=== PATIENT | female | born 1955 | race Caucasian/White ===

== ENCOUNTER 2017-04-25 01:00 | Emergency (ER) | payer MEDICARE, OTHER ==
[2017-04-25] MEDS ORDERED: HYDROCODONE/APAP (10/325) TAB PO (01:30)
[2017-04-25] MEDS: ONDANSETRON 4 MG INJ IV (01:47)
[2017-04-25] MEDS: morphine 4 MG/ML VIAL IV (01:47)
[2017-04-25 02:19] LABS: ADD MAN DIFF? NO
[2017-04-25 02:22] LABS: BASOPHILS % 0.2 % (0.0-2.0); EOSINOPHILS % 0.2 % (0.0-7.0); HEMOGLOBIN 10.7 g/dl (12.0-16.0); LYMPHOCYTES # 1.2 10^3/ul (0.8-2.9); LYMPHOCYTES % 6.1 % (15.0-51.0); MEAN CORPUSCULAR HEMOGLOBIN 30.7 pg (29.0-33.0); MEAN CORPUSCULAR HGB CONC 33.4 g/dl (32.0-37.0); MEAN CORPUSCULAR VOLUME 91.7 fl (82.0-101.0); MEAN PLATELET VOLUME 12.4 fl (7.4-10.4); MONOCYTE # 0.9 10^3/ul (0.3-0.9); MONOCYTES % 4.6 % (0.0-11.0); NEUTROPHIL # 17.2 10^3/ul (1.6-7.5); NEUTROPHILS % 87.8 % (39.0-77.0); PLATELET COUNT 339 10^3/UL (140-415); RED BLOOD COUNT 3.49 10^6/ul (4.20-5.40)
[2017-04-25 02:22] LABS: WHITE BLOOD COUNT 19.6 10^3/ul (4.8-10.8)
[2017-04-25] MEDS: HYDROmorphONE 1 MG/ML SYG IV (02:26)
[2017-04-25 02:38] LABS: INR 0.95; PARTIAL THROMBOPLASTIN TIME 34.3 Sec (25.0-35.0); PROTIME 12.8 Sec (11.9-14.9)
[2017-04-25 02:45] LABS: ALANINE AMINOTRANSFERASE 41 IU/L (13-69); ALBUMIN 3.5 g/dl (3.3-4.9); ALBUMIN/GLOBULIN RATIO 1.09; ALKALINE PHOSPHATASE 1096 IU/L (42-121); ANION GAP 22 (8-16); ASPARTATE AMINO TRANSFERASE 102 IU/L (15-46); BILIRUBIN,INDIRECT 0.3 mg/dl (0-1.1); BILIRUBIN,TOTAL 0.7 mg/dl (0.2-1.3); BLOOD UREA NITROGEN 37 mg/dl (7-20); CALCIUM 8.8 mg/dl (8.4-10.2); CARBON DIOXIDE 31 mmol/L (21-31); CHLORIDE 85 mmol/L (97-110); CREATININE 3.76 mg/dl (0.44-1.00); GLUCOSE 186 mg/dl (70-220); LIPASE 16 U/L (23-300); POTASSIUM 4.3 mmol/L (3.5-5.1); SODIUM 134 mmol/L (135-144); TOTAL PROTEIN 6.7 g/dl (6.1-8.1)
== END 2017-04-25 03:11 | disposition home or self-care (01) ==
LOC: E/R 01:00
DX: M53.3 Sacrococcygeal disorders, not elsewhere classified (principal); I10 Essential (primary) hypertension; R07.9 Chest pain, unspecified; Z96.643 Presence of artificial hip joint, bilateral
CPT/HCPCS: 36415; 72131; 73510; 80053; 83690; 85025; 85610; 85730; 96374; 96375; 99285-25

== ENCOUNTER 2017-06-21 00:38 | Inpatient (IN) | payer MEDICARE, OTHER ==
[2017-06-21] MEDS: NITROGLYCERIN 2% 1 GM OINT PKT TD (01:06)
[2017-06-21] MEDS: morphine 4 MG/ML VIAL IV ×2 (01:07→11:49)
[2017-06-21 01:25] LABS: ADD MAN DIFF? NO
[2017-06-21 01:27] LABS: WHITE BLOOD COUNT 8.6 10^3/ul (4.8-10.8)
[2017-06-21 01:27] LABS: BASOPHILS % 0.4 % (0.0-2.0); EOSINOPHILS # 0.2 10^3/ul (0.0-0.5); HEMOGLOBIN 9.4 g/dl (12.0-16.0); LYMPHOCYTES # 1.3 10^3/ul (0.8-2.9); LYMPHOCYTES % 14.9 % (15.0-51.0); MEAN CORPUSCULAR HEMOGLOBIN 31.4 pg (29.0-33.0); MEAN CORPUSCULAR HGB CONC 33.6 g/dl (32.0-37.0); MEAN CORPUSCULAR VOLUME 93.6 fl (82.0-101.0); MEAN PLATELET VOLUME 12.1 fl (7.4-10.4); MONOCYTE # 0.8 10^3/ul (0.3-0.9); MONOCYTES % 9.3 % (0.0-11.0); NEUTROPHIL # 6.3 10^3/ul (1.6-7.5); NEUTROPHILS % 72.9 % (39.0-77.0); PLATELET COUNT 148 10^3/UL (140-415); RED BLOOD COUNT 2.99 10^6/ul (4.20-5.40); RED CELL DISTRIBUTION WIDTH 17.2 % (11.5-14.5)
[2017-06-21 01:43] LABS: ALANINE AMINOTRANSFERASE 28 IU/L (13-69); ALBUMIN 3.6 g/dl (3.3-4.9); ALBUMIN/GLOBULIN RATIO 1.24; ALKALINE PHOSPHATASE 680 IU/L (42-121); ANION GAP 23 (8-16); ASPARTATE AMINO TRANSFERASE 45 IU/L (15-46); BLOOD UREA NITROGEN 54 mg/dl (7-20); CALCIUM 8.3 mg/dl (8.4-10.2); CARBON DIOXIDE 28 mmol/L (21-31); CHLORIDE 92 mmol/L (97-110); CREATININE 4.94 mg/dl (0.44-1.00); GLUCOSE 92 mg/dl (70-220); SODIUM 137 mmol/L (135-144); TOTAL PROTEIN 6.5 g/dl (6.1-8.1)
[2017-06-21 01:46] LABS: POTASSIUM 6.1 mmol/L (3.5-5.1)
[2017-06-21 01:48] LABS: INR 1.05; PROTIME 13.8 Sec (11.9-14.9); PT RATIO 1.1
[2017-06-21 01:57] LABS: TROPONIN-I < 0.012 ng/ml (0.00-0.12)
[2017-06-21] MEDS: hydrALAzine 20 MG INJ IV ×3 (02:06→19:54)
[2017-06-21] MEDS: NA POLYST SULFON 15 GM/60 ML BTL PO (02:07)
[2017-06-21 02:30] LABS: B-TYPE NATRIURETIC PEPTIDE > 175000 PG/ML (0-125)
[2017-06-21] MEDS: morphine 2 MG INJ IV (07:28)
[2017-06-21] MEDS: ONDANSETRON 4 MG INJ IV ×3 (07:28→20:07)
[2017-06-21 12:18] LABS: HEPATITIS B SURFACE ANTIGEN NEGATIVE (NEGATIVE)
[2017-06-21] MEDS ORDERED: DOCUSATE SODIUM 100 MG CAP PO (12:30)
[2017-06-21] MEDS ORDERED: BISACODYL 10 MG SUPP PR (12:30)
[2017-06-21] MEDS ORDERED: GLUCAGON 1 MG INJ IM (12:30)
[2017-06-21] MEDS ORDERED: GLUCOSE GEL 15 GRAM TUBE BUCCAL (12:30)
[2017-06-21] MEDS ORDERED: NACL 0.9% 3 ML SYG IV (12:30)
[2017-06-21] MEDS ORDERED: MAGNESIUM HYDROXIDE 30ML CUP PO (12:30)
[2017-06-21 12:36] LABS: HEPATITIS B SURFACE ANTIBODY POSITIVE (NEGATIVE)
[2017-06-21] MEDS: LEVOFLOXACIN 500MG/D5W (PMX) 100 ML IVPB (16:08)
[2017-06-21] MEDS: AMLODIPINE 5 MG TAB PO ×2 (16:08→19:54)
[2017-06-21 17:09] LABS: ANION GAP 20 (8-16); BLOOD UREA NITROGEN 24 mg/dl (7-20); CALCIUM 8.8 mg/dl (8.4-10.2); CARBON DIOXIDE 29 mmol/L (21-31); CHLORIDE 94 mmol/L (97-110); CREATININE 3.24 mg/dl (0.44-1.00); GLUCOSE 162 mg/dl (70-220); SODIUM 139 mmol/L (135-144)
[2017-06-21] MEDS: SEVELAMER CARBONATE 0.8 GM PKT PO (17:28)
[2017-06-21] MEDS: traMADol 50 MG TAB PO ×2 (17:28→23:01)
[2017-06-21] MEDS: INSULIN ASPART [NOVOLOG] 3 ML PEN SC ×2 (18:01→20:06)
[2017-06-21] MEDS: LISINOPRIL 10 MG TAB PO (19:54)
[2017-06-21] MEDS: INSULIN GLARGINE [LANtus] 3 ML PEN SC (20:06)
[2017-06-21] MEDS ORDERED: LISINOPRIL 10 MG TAB PO (21:00)
[2017-06-21] MEDS: SUMATRIPTAN 6 MG/0.5 ML INJ SC (22:11)
[2017-06-22] MEDS: ACCU-CHEK XX (02:41)
[2017-06-22] MEDS: GLUCOSE GEL 15 GRAM TUBE PO (02:41)
[2017-06-22 07:48] LABS: ADD MAN DIFF? NO
[2017-06-22 07:53] LABS: BASOPHILS % 0.4 % (0.0-2.0); EOSINOPHILS % 0.1 % (0.0-7.0); HEMATOCRIT 33.8 % (37.0-47.0); HEMOGLOBIN 10.6 g/dl (12.0-16.0); LYMPHOCYTES # 0.9 10^3/ul (0.8-2.9); LYMPHOCYTES % 11.1 % (15.0-51.0); MEAN CORPUSCULAR HEMOGLOBIN 30.4 pg (29.0-33.0); MEAN CORPUSCULAR HGB CONC 31.4 g/dl (32.0-37.0); MEAN CORPUSCULAR VOLUME 96.8 fl (82.0-101.0); MEAN PLATELET VOLUME 12.4 fl (7.4-10.4); MONOCYTE # 0.5 10^3/ul (0.3-0.9); MONOCYTES % 6.3 % (0.0-11.0); NEUTROPHIL # 6.2 10^3/ul (1.6-7.5); NEUTROPHILS % 81.4 % (39.0-77.0); PLATELET COUNT 152 10^3/UL (140-415); RED BLOOD COUNT 3.49 10^6/ul (4.20-5.40); RED CELL DISTRIBUTION WIDTH 17.1 % (11.5-14.5)
[2017-06-22 07:53] LABS: WHITE BLOOD COUNT 7.7 10^3/ul (4.8-10.8)
[2017-06-22] MEDS: INSULIN ASPART [NOVOLOG] 3 ML PEN SC ×4 (07:55→21:00)
[2017-06-22] MEDS ORDERED: ZOLPIDEM 5 MG TAB PO (08:00)
[2017-06-22 08:05] LABS: HEMOGLOBIN A1C 6.7 % (0-5.9)
[2017-06-22] MEDS: SEVELAMER CARBONATE 0.8 GM PKT PO ×3 (08:09→17:54)
[2017-06-22] MEDS: ASPIRIN 81 MG TAB PO (08:09)
[2017-06-22] MEDS: FOLIC ACID 1 MG TAB PO (08:10)
[2017-06-22] MEDS: PAROXETINE 20 MG TAB PO (08:10)
[2017-06-22] MEDS: MULTIVIT/CA CARB/B CMPLX/FA TAB PO (08:10)
[2017-06-22] MEDS: PANTOPRAZOLE (EC) 40 MG TAB PO (08:10)
[2017-06-22] MEDS: AMLODIPINE 5 MG TAB PO ×2 (08:10→21:00)
[2017-06-22] MEDS: LISINOPRIL 10 MG TAB PO ×2 (08:10→21:00)
[2017-06-22] MEDS: INFLUENZA VIRUS VACCINE 0.5 ML (DISPENSING) IM* (08:11)
[2017-06-22 08:14] LABS: ALANINE AMINOTRANSFERASE 16 IU/L (13-69); ALBUMIN 3.7 g/dl (3.3-4.9); ALBUMIN/GLOBULIN RATIO 1.15; ALKALINE PHOSPHATASE 640 IU/L (42-121); ANION GAP 18 (8-16); ASPARTATE AMINO TRANSFERASE 43 IU/L (15-46); BLOOD UREA NITROGEN 28 mg/dl (7-20); CALCIUM 8.8 mg/dl (8.4-10.2); CARBON DIOXIDE 31 mmol/L (21-31); CHLORIDE 94 mmol/L (97-110); CHOL/HDL RATIO 2.5 RATIO; CHOLESTEROL 143 mg/dl (100-200); CREATININE 3.76 mg/dl (0.44-1.00); GLUCOSE 79 mg/dl (70-220); HDL CHOLESTEROL 56 mg/dl (35-98); LDL CHOLESTEROL,CALCULATED 69 mg/dl; MAGNESIUM 2.2 mg/dl (1.7-2.5); PHOSPHORUS 6.8 mg/dl (2.5-4.9); SODIUM 139 mmol/L (135-144); TOTAL PROTEIN 6.9 g/dl (6.1-8.1); TRIGLYCERIDES 90 mg/dl (0-149)
[2017-06-22 08:28] LABS: FREE THYROXINE INDEX (Calc) 2.79 ug/ml (0.65-3.89); T3 UPTAKE 33.2 % (23.5-40.5); T4 (THYROXINE) 8.4 ug/dl (5.5-11.0)
[2017-06-22] MEDS ORDERED: ONDANSETRON 4 MG INJ IV (10:00)
[2017-06-22] MEDS: ONDANSETRON 4 MG INJ IV (10:02)
[2017-06-22] MEDS: LORAZEPAM 2 MG INJ IV (14:43)
[2017-06-22] MEDS: INSULIN GLARGINE [LANtus] 3 ML PEN SC (21:00)
[2017-06-23] MEDS: ACCU-CHEK XX (01:51)
[2017-06-23] MEDS: ALBUTEROL/IPRATROPIUM (NEB) 3 ML AMP HHN (03:24)
[2017-06-23] MEDS ORDERED: LORAZEPAM 2 MG INJ IV (07:30)
[2017-06-23] MEDS: SEVELAMER CARBONATE 0.8 GM PKT PO ×3 (07:55→17:26)
[2017-06-23] MEDS: INSULIN ASPART [NOVOLOG] 3 ML PEN SC ×5 (07:55→22:59)
[2017-06-23] MEDS: LORAZEPAM 2 MG INJ IV (08:00)
[2017-06-23] MEDS: hydrALAzine 20 MG INJ IV ×2 (09:01→17:26)
[2017-06-23] MEDS: PANTOPRAZOLE (EC) 40 MG TAB PO (12:01)
[2017-06-23] MEDS: ASPIRIN 81 MG TAB PO (12:01)
[2017-06-23] MEDS: PAROXETINE 20 MG TAB PO (12:01)
[2017-06-23] MEDS: MULTIVIT/CA CARB/B CMPLX/FA TAB PO (12:01)
[2017-06-23] MEDS: FOLIC ACID 1 MG TAB PO (12:02)
[2017-06-23] MEDS: LISINOPRIL 10 MG TAB PO ×2 (12:02→21:34)
[2017-06-23] MEDS: AMLODIPINE 5 MG TAB PO ×2 (12:02→21:33)
[2017-06-23] MEDS: LEVOFLOXACIN 250MG/D5W (PMX) 50 ML IVPB (16:00)
[2017-06-23] MEDS: ATENOLOL 50 MG TAB PO (21:30)
[2017-06-23] MEDS: INSULIN GLARGINE [LANtus] 3 ML PEN SC ×2 (21:42→23:17)
[2017-06-24] MEDS: ACCU-CHEK XX ×7 (02:00→23:55)
[2017-06-24] MEDS: GLUCOSE GEL 15 GRAM TUBE PO ×4 (02:06→17:04)
[2017-06-24] MEDS: DEXTROSE 50% 50 ML SYRINGE IV ×4 (02:28→07:22)
[2017-06-24] MEDS: hydrALAzine 20 MG INJ IV (06:37)
[2017-06-24 07:34] LABS: ADD MAN DIFF? NO
[2017-06-24 07:37] LABS: BASOPHILS % 0.1 % (0.0-2.0); EOSINOPHILS % 0.5 % (0.0-7.0); HEMATOCRIT 30.2 % (37.0-47.0); HEMOGLOBIN 9.7 g/dl (12.0-16.0); LYMPHOCYTES # 1.4 10^3/ul (0.8-2.9); LYMPHOCYTES % 17.3 % (15.0-51.0); MEAN CORPUSCULAR HEMOGLOBIN 31.2 pg (29.0-33.0); MEAN CORPUSCULAR HGB CONC 32.1 g/dl (32.0-37.0); MEAN CORPUSCULAR VOLUME 97.1 fl (82.0-101.0); MEAN PLATELET VOLUME 11.6 fl (7.4-10.4); MONOCYTE # 0.6 10^3/ul (0.3-0.9); MONOCYTES % 7.4 % (0.0-11.0); NEUTROPHIL # 5.9 10^3/ul (1.6-7.5); NEUTROPHILS % 74.3 % (39.0-77.0); PLATELET COUNT 142 10^3/UL (140-415); RED BLOOD COUNT 3.11 10^6/ul (4.20-5.40)
[2017-06-24 07:37] LABS: WHITE BLOOD COUNT 7.9 10^3/ul (4.8-10.8)
[2017-06-24] MEDS: INSULIN ASPART [NOVOLOG] 3 ML PEN SC ×5 (07:55→21:00)
[2017-06-24 08:15] LABS: ANION GAP 19 (8-16); BLOOD UREA NITROGEN 21 mg/dl (7-20); CALCIUM 8.2 mg/dl (8.4-10.2); CARBON DIOXIDE 29 mmol/L (21-31); CHLORIDE 97 mmol/L (97-110); CREATININE 3.59 mg/dl (0.44-1.00); GLUCOSE 62 mg/dl (70-220); POTASSIUM 4.2 mmol/L (3.5-5.1); SODIUM 141 mmol/L (135-144)
[2017-06-24] MEDS: LIDOCAINE 1% (MPF) 5 ML VIAL SC (08:30)
[2017-06-24] MEDS ORDERED: ATENOLOL 100 MG TAB PO (09:00)
[2017-06-24] MEDS: SEVELAMER CARBONATE 0.8 GM PKT PO ×3 (09:06→17:35)
[2017-06-24] MEDS: MULTIVIT/CA CARB/B CMPLX/FA TAB PO (09:06)
[2017-06-24] MEDS: PAROXETINE 20 MG TAB PO (09:07)
[2017-06-24] MEDS: ASPIRIN 81 MG TAB PO (09:07)
[2017-06-24] MEDS: ATENOLOL 50 MG TAB PO ×2 (09:07→21:00)
[2017-06-24] MEDS: FOLIC ACID 1 MG TAB PO (09:08)
[2017-06-24] MEDS: AMLODIPINE 5 MG TAB PO ×2 (09:08→21:00)
[2017-06-24] MEDS: LISINOPRIL 10 MG TAB PO ×2 (09:08→22:00)
[2017-06-24] MEDS: PANTOPRAZOLE (EC) 40 MG TAB PO (09:08)
[2017-06-24] MEDS: DEXTROSE 5% 1,000 ML IV (12:30)
[2017-06-24] MEDS: ALBUTEROL/IPRATROPIUM (NEB) 3 ML AMP HHN ×2 (14:39→20:37)
[2017-06-24] MEDS: DEXTROSE 10% 1,000 ML IV (17:45)
[2017-06-24] MEDS: ONDANSETRON 4 MG INJ IV (20:53)
[2017-06-25] MEDS: ACCU-CHEK XX ×12 (01:19→19:58)
[2017-06-25 05:20] LABS: ADD MAN DIFF? NO
[2017-06-25 06:06] LABS: ANION GAP 20 (8-16); BLOOD UREA NITROGEN 30 mg/dl (7-20); CALCIUM 7.8 mg/dl (8.4-10.2); CARBON DIOXIDE 27 mmol/L (21-31); CHLORIDE 95 mmol/L (97-110); CREATININE 4.48 mg/dl (0.44-1.00); GLUCOSE 186 mg/dl (70-220); POTASSIUM 5.1 mmol/L (3.5-5.1); SODIUM 137 mmol/L (135-144)
[2017-06-25 06:28] LABS: BASOPHILS % 0.3 % (0.0-2.0); EOSINOPHILS # 0.1 10^3/ul (0.0-0.5); EOSINOPHILS % 1.3 % (0.0-7.0); HEMATOCRIT 29.8 % (37.0-47.0); HEMOGLOBIN 9.6 g/dl (12.0-16.0); LYMPHOCYTES # 1.4 10^3/ul (0.8-2.9); LYMPHOCYTES % 23.6 % (15.0-51.0); MEAN CORPUSCULAR HEMOGLOBIN 30.8 pg (29.0-33.0); MEAN CORPUSCULAR HGB CONC 32.2 g/dl (32.0-37.0); MEAN CORPUSCULAR VOLUME 95.5 fl (82.0-101.0); MEAN PLATELET VOLUME 12.7 fl (7.4-10.4); MONOCYTE # 0.5 10^3/ul (0.3-0.9); MONOCYTES % 8.2 % (0.0-11.0); NEUTROPHILS % 65.9 % (39.0-77.0); RED BLOOD COUNT 3.12 10^6/ul (4.20-5.40); RED CELL DISTRIBUTION WIDTH 17.2 % (11.5-14.5)
[2017-06-25 07:17] LABS: POSITIVE DIFF @See below
[2017-06-25] MEDS: SEVELAMER CARBONATE 0.8 GM PKT PO ×3 (07:35→17:49)
[2017-06-25] MEDS: INSULIN ASPART [NOVOLOG] 3 ML PEN SC ×7 (08:34→21:23)
[2017-06-25 09:12] LABS: ANISOCYTOSIS 2+ (0-0); BAND NEUTROPHILS #M 0.1 10^3/ul (0.0-0.6); BAND NEUTROPHILS % (M) 2 % (0-4); EOSINOPHILS % (M) 1 % (0-7); GIANT THROMBO% (M) 12 % (0-0); LYMPHOCYTES #M 1.5 10^3/ul (0.8-2.9); LYMPHOCYTES % (M) 25 % (15-51); MONOCYTES % (M) 1 % (0-11); PLATELET ESTIMATE DECREASED; REACTIVE LYMPHOCYTES #M 0.7 10^3/ul (0.0-0.0); REACTIVE LYMPHOCYTES% (M) 12 % (0-0); SEG NEUT #M 3.5 10^3/ul (1.6-7.5); SEGMENTED NEUTROPHILS (M) % 59 % (39-77); SMUDGE%M 22 % (0-0)
[2017-06-25] MEDS: ALBUTEROL/IPRATROPIUM (NEB) 3 ML AMP HHN ×3 (09:21→20:00)
[2017-06-25] MEDS ORDERED: ACCU-CHEK XX (12:00)
[2017-06-25] MEDS: PANTOPRAZOLE (EC) 40 MG TAB PO (13:40)
[2017-06-25] MEDS: MULTIVIT/CA CARB/B CMPLX/FA TAB PO (13:40)
[2017-06-25] MEDS: ASPIRIN 81 MG TAB PO (13:40)
[2017-06-25] MEDS: ATENOLOL 50 MG TAB PO ×2 (13:41→21:28)
[2017-06-25] MEDS: LISINOPRIL 10 MG TAB PO ×2 (13:41→21:28)
[2017-06-25] MEDS: AMLODIPINE 5 MG TAB PO ×2 (13:43→21:28)
[2017-06-25] MEDS: FOLIC ACID 1 MG TAB PO (13:43)
[2017-06-25] MEDS: PAROXETINE 20 MG TAB PO (13:47)
[2017-06-25 13:56] LABS: PLATELET COUNT 119 10^3/UL (140-415)
[2017-06-25] MEDS: ONDANSETRON 4 MG INJ IV ×2 (14:35→22:30)
[2017-06-25] MEDS: LEVOFLOXACIN 250MG/D5W (PMX) 50 ML IVPB (16:20)
[2017-06-25] MEDS: LIDOCAINE 2% JELLY 5 ML TOP (16:30)
[2017-06-25] MEDS: morphine 2 MG INJ IV (16:30)
[2017-06-25] MEDS: DEXTROSE 10% 1,000 ML IV (17:30)
[2017-06-25] MEDS: INSULIN GLARGINE [LANtus] 3 ML PEN SC (21:00)
[2017-06-26] MEDS: ACCU-CHEK XX ×3 (00:07→04:49)
[2017-06-26 04:48] LABS: ADD MAN DIFF? NO
[2017-06-26 04:50] LABS: WHITE BLOOD COUNT 6.1 10^3/ul (4.8-10.8)
[2017-06-26 04:50] LABS: BASOPHILS % 0.3 % (0.0-2.0); EOSINOPHILS # 0.2 10^3/ul (0.0-0.5); EOSINOPHILS % 2.6 % (0.0-7.0); HEMATOCRIT 30.5 % (37.0-47.0); HEMOGLOBIN 9.9 g/dl (12.0-16.0); LYMPHOCYTES # 1.1 10^3/ul (0.8-2.9); LYMPHOCYTES % 18.6 % (15.0-51.0); MEAN CORPUSCULAR HEMOGLOBIN 31.2 pg (29.0-33.0); MEAN CORPUSCULAR HGB CONC 32.5 g/dl (32.0-37.0); MEAN CORPUSCULAR VOLUME 96.2 fl (82.0-101.0); MEAN PLATELET VOLUME 12.2 fl (7.4-10.4); MONOCYTE # 0.5 10^3/ul (0.3-0.9); MONOCYTES % 8.4 % (0.0-11.0); NEUTROPHIL # 4.2 10^3/ul (1.6-7.5); NEUTROPHILS % 69.8 % (39.0-77.0); PLATELET COUNT 132 10^3/UL (140-415); RED BLOOD COUNT 3.17 10^6/ul (4.20-5.40); RED CELL DISTRIBUTION WIDTH 16.5 % (11.5-14.5)
[2017-06-26 05:12] LABS: ANION GAP 18 (8-16); BLOOD UREA NITROGEN 30 mg/dl (7-20); CALCIUM 8.2 mg/dl (8.4-10.2); CARBON DIOXIDE 29 mmol/L (21-31); CHLORIDE 95 mmol/L (97-110); GLUCOSE 157 mg/dl (70-220); POTASSIUM 4.7 mmol/L (3.5-5.1); SODIUM 137 mmol/L (135-144)
[2017-06-26] MEDS: INSULIN ASPART [NOVOLOG] 3 ML PEN SC ×6 (07:35→21:20)
[2017-06-26] MEDS: ONDANSETRON 4 MG INJ IV ×2 (07:36→12:46)
[2017-06-26] MEDS: ALBUTEROL/IPRATROPIUM (NEB) 3 ML AMP HHN ×4 (07:37→20:00)
[2017-06-26] MEDS: SEVELAMER CARBONATE 0.8 GM PKT PO ×3 (08:30→17:20)
[2017-06-26] MEDS: MULTIVIT/CA CARB/B CMPLX/FA TAB PO (08:31)
[2017-06-26] MEDS: AMLODIPINE 5 MG TAB PO ×2 (08:31→21:23)
[2017-06-26] MEDS: FOLIC ACID 1 MG TAB PO (08:31)
[2017-06-26] MEDS: LISINOPRIL 10 MG TAB PO ×2 (08:31→21:24)
[2017-06-26] MEDS: PAROXETINE 20 MG TAB PO (08:32)
[2017-06-26] MEDS: ASPIRIN 81 MG TAB PO (08:32)
[2017-06-26] MEDS: PANTOPRAZOLE (EC) 40 MG TAB PO (08:32)
[2017-06-26] MEDS: ATENOLOL 50 MG TAB PO ×2 (08:32→21:00)
[2017-06-26] MEDS: morphine 2 MG INJ IV ×2 (10:54→16:08)
[2017-06-26] MEDS: INSULIN GLARGINE [LANtus] 3 ML PEN SC (21:21)
[2017-06-27] MEDS: ACCU-CHEK XX (02:00)
[2017-06-27] MEDS: INSULIN ASPART [NOVOLOG] 3 ML PEN SC ×6 (07:55→21:00)
[2017-06-27 07:56] LABS: ADD MAN DIFF? NO
[2017-06-27 08:00] LABS: WHITE BLOOD COUNT 6.9 10^3/ul (4.8-10.8)
[2017-06-27 08:00] LABS: BASOPHILS % 0.4 % (0.0-2.0); EOSINOPHILS # 0.2 10^3/ul (0.0-0.5); EOSINOPHILS % 3.5 % (0.0-7.0); HEMATOCRIT 30.3 % (37.0-47.0); HEMOGLOBIN 9.9 g/dl (12.0-16.0); LYMPHOCYTES # 1.4 10^3/ul (0.8-2.9); LYMPHOCYTES % 19.7 % (15.0-51.0); MEAN CORPUSCULAR HEMOGLOBIN 30.6 pg (29.0-33.0); MEAN CORPUSCULAR HGB CONC 32.7 g/dl (32.0-37.0); MEAN CORPUSCULAR VOLUME 93.5 fl (82.0-101.0); MEAN PLATELET VOLUME 12.1 fl (7.4-10.4); MONOCYTE # 0.5 10^3/ul (0.3-0.9); MONOCYTES % 7.3 % (0.0-11.0); NEUTROPHIL # 4.7 10^3/ul (1.6-7.5); NEUTROPHILS % 68.7 % (39.0-77.0); PLATELET COUNT 135 10^3/UL (140-415); RED BLOOD COUNT 3.24 10^6/ul (4.20-5.40); RED CELL DISTRIBUTION WIDTH 16.2 % (11.5-14.5)
[2017-06-27] MEDS: ALBUTEROL/IPRATROPIUM (NEB) 3 ML AMP HHN ×3 (08:00→15:36)
[2017-06-27 08:01] LABS: POSITIVE DIFF @See below
[2017-06-27 08:19] LABS: ANION GAP 20 (8-16); BLOOD UREA NITROGEN 47 mg/dl (7-20); CALCIUM 8.3 mg/dl (8.4-10.2); CARBON DIOXIDE 26 mmol/L (21-31); CHLORIDE 95 mmol/L (97-110); CREATININE 5.04 mg/dl (0.44-1.00); GLUCOSE 56 mg/dl (70-220); POTASSIUM 5.3 mmol/L (3.5-5.1); SODIUM 136 mmol/L (135-144)
[2017-06-27] MEDS: SEVELAMER CARBONATE 0.8 GM PKT PO ×3 (08:22→17:55)
[2017-06-27] MEDS: AMLODIPINE 5 MG TAB PO ×2 (08:27→22:18)
[2017-06-27] MEDS: PAROXETINE 20 MG TAB PO (08:27)
[2017-06-27] MEDS: LISINOPRIL 10 MG TAB PO ×2 (08:27→22:18)
[2017-06-27] MEDS: ASPIRIN 81 MG TAB PO (08:27)
[2017-06-27] MEDS: MULTIVIT/CA CARB/B CMPLX/FA TAB PO (08:27)
[2017-06-27] MEDS: ATENOLOL 50 MG TAB PO ×2 (08:28→22:18)
[2017-06-27] MEDS: FOLIC ACID 1 MG TAB PO (08:28)
[2017-06-27] MEDS: PANTOPRAZOLE (EC) 40 MG TAB PO (08:28)
[2017-06-27] MEDS: DEXTROSE 5%-0.9% NACL 1,000 ML IV (13:30)
[2017-06-27] MEDS: LEVOFLOXACIN 500 MG TAB PO (18:09)
[2017-06-27] MEDS: morphine LIQ (10 MG/5 ML) CUP PO (22:39)
[2017-06-28] MEDS: ACCU-CHEK XX (02:00)
[2017-06-28 05:21] LABS: ADD MAN DIFF? NO
[2017-06-28 05:27] LABS: WHITE BLOOD COUNT 6.1 10^3/ul (4.8-10.8)
[2017-06-28 05:27] LABS: BASOPHILS % 0.3 % (0.0-2.0); EOSINOPHILS # 0.1 10^3/ul (0.0-0.5); EOSINOPHILS % 2.3 % (0.0-7.0); HEMATOCRIT 30.2 % (37.0-47.0); HEMOGLOBIN 9.9 g/dl (12.0-16.0); LYMPHOCYTES # 1.4 10^3/ul (0.8-2.9); LYMPHOCYTES % 22.2 % (15.0-51.0); MEAN CORPUSCULAR HEMOGLOBIN 30.7 pg (29.0-33.0); MEAN CORPUSCULAR HGB CONC 32.8 g/dl (32.0-37.0); MEAN CORPUSCULAR VOLUME 93.8 fl (82.0-101.0); MEAN PLATELET VOLUME 11.9 fl (7.4-10.4); MONOCYTE # 0.6 10^3/ul (0.3-0.9); MONOCYTES % 9.3 % (0.0-11.0); NEUTROPHILS % 65.4 % (39.0-77.0); PLATELET COUNT 118 10^3/UL (140-415); RED BLOOD COUNT 3.22 10^6/ul (4.20-5.40); RED CELL DISTRIBUTION WIDTH 15.9 % (11.5-14.5)
[2017-06-28 05:46] LABS: ANION GAP 22 (8-16); BLOOD UREA NITROGEN 56 mg/dl (7-20); CALCIUM 8.2 mg/dl (8.4-10.2); CARBON DIOXIDE 25 mmol/L (21-31); CHLORIDE 93 mmol/L (97-110); CREATININE 5.62 mg/dl (0.44-1.00); GLUCOSE 217 mg/dl (70-220); SODIUM 133 mmol/L (135-144)
[2017-06-28 05:52] LABS: POTASSIUM 6.5 mmol/L (3.5-5.1)
[2017-06-28] MEDS: NA POLYST SULFON 15 GM/60 ML BTL PO (06:36)
[2017-06-28] MEDS: ALBUTEROL/IPRATROPIUM (NEB) 3 ML AMP HHN ×3 (08:00→19:52)
[2017-06-28] MEDS: LISINOPRIL 10 MG TAB PO ×3 (09:00→21:24)
[2017-06-28] MEDS: AMLODIPINE 5 MG TAB PO ×3 (09:00→21:24)
[2017-06-28] MEDS: ATENOLOL 50 MG TAB PO ×3 (09:00→21:24)
[2017-06-28] MEDS: FOLIC ACID 1 MG TAB PO (09:13)
[2017-06-28] MEDS: MULTIVIT/CA CARB/B CMPLX/FA TAB PO (09:13)
[2017-06-28] MEDS: ASPIRIN 81 MG TAB PO (09:13)
[2017-06-28] MEDS: PANTOPRAZOLE (EC) 40 MG TAB PO (09:14)
[2017-06-28] MEDS: PAROXETINE 20 MG TAB PO (09:14)
[2017-06-28] MEDS: SEVELAMER CARBONATE 0.8 GM PKT PO ×3 (09:14→17:55)
[2017-06-28] MEDS: INSULIN ASPART [NOVOLOG] 3 ML PEN SC ×7 (09:16→22:26)
[2017-06-28] MEDS ORDERED: LIDOCAINE 1% (MDV) 20 ML INJ (16:19)
[2017-06-28] MEDS ORDERED: IODIXANOL LOCM 50 ML BTL (16:44)
[2017-06-28] MEDS: ENALAPRILAT 1.25 MG INJ IV (19:03)
[2017-06-29] MEDS: ACCU-CHEK XX (01:55)
[2017-06-29] MEDS: ALBUTEROL/IPRATROPIUM (NEB) 3 ML AMP HHN ×3 (08:00→20:00)
[2017-06-29] MEDS: SEVELAMER CARBONATE 0.8 GM PKT PO ×4 (08:35→18:05)
[2017-06-29] MEDS: PAROXETINE 20 MG TAB PO (08:36)
[2017-06-29] MEDS: AMLODIPINE 5 MG TAB PO ×2 (08:36→20:45)
[2017-06-29] MEDS: ASPIRIN 81 MG TAB PO (08:36)
[2017-06-29] MEDS: MULTIVIT/CA CARB/B CMPLX/FA TAB PO (08:36)
[2017-06-29] MEDS: PANTOPRAZOLE (EC) 40 MG TAB PO (08:36)
[2017-06-29] MEDS: ATENOLOL 50 MG TAB PO ×2 (08:36→20:45)
[2017-06-29] MEDS: FOLIC ACID 1 MG TAB PO (08:37)
[2017-06-29] MEDS: LISINOPRIL 10 MG TAB PO ×2 (08:37→20:45)
[2017-06-29] MEDS: INSULIN ASPART [NOVOLOG] 3 ML PEN SC ×7 (08:41→20:46)
[2017-06-29] MEDS: morphine LIQ (10 MG/5 ML) CUP PO (21:48)
[2017-06-29] MEDS: morphine 2 MG INJ IV (22:38)
[2017-06-30] MEDS: ACCU-CHEK XX (02:00)
[2017-06-30] MEDS: ALBUTEROL/IPRATROPIUM (NEB) 3 ML AMP HHN ×3 (08:00→19:33)
[2017-06-30] MEDS: ATENOLOL 50 MG TAB PO ×2 (09:00→20:16)
[2017-06-30] MEDS: LISINOPRIL 10 MG TAB PO ×2 (09:00→20:17)
[2017-06-30] MEDS: AMLODIPINE 5 MG TAB PO ×2 (09:00→20:16)
[2017-06-30] MEDS: INSULIN ASPART [NOVOLOG] 3 ML PEN SC ×7 (09:00→21:00)
[2017-06-30] MEDS: PANTOPRAZOLE (EC) 40 MG TAB PO (09:12)
[2017-06-30] MEDS: ASPIRIN 81 MG TAB PO (09:13)
[2017-06-30] MEDS: SEVELAMER CARBONATE 0.8 GM PKT PO ×3 (09:13→18:43)
[2017-06-30] MEDS: FOLIC ACID 1 MG TAB PO (09:13)
[2017-06-30] MEDS: MULTIVIT/CA CARB/B CMPLX/FA TAB PO (09:13)
[2017-06-30] MEDS: PAROXETINE 20 MG TAB PO (09:14)
[2017-06-30] MEDS: ONDANSETRON 4 MG INJ IV (21:57)
[2017-06-30] MEDS: morphine LIQ (10 MG/5 ML) CUP PO (22:04)
== END 2017-06-30 22:15 | DRG 252 ==
LOC: ICU 06-24 09:25 → MS1 06-27 13:27 → E/R 00:38 → TEL 06-26 20:51 → MS1 06-27 13:36 → TEL 05:41
PROC: 05753ZZ Dilation of Right Subclavian Vein, Percutaneous Approach (ICD-10-PCS; principal; 2017-06-28 16:00)
PROC: 027V3ZZ Dilation of Superior Vena Cava, Percutaneous Approach (ICD-10-PCS; 2017-06-28 16:00)
PROC: B518YZZ Fluoroscopy of Superior Vena Cava using Other Contrast (ICD-10-PCS; 2017-06-28 16:00)
PROC: B51WYZZ Fluoroscopy of Dialysis Shunt/Fistula using Other Contrast (ICD-10-PCS; 2017-06-28 16:00)
PROC: 5A1D70Z Performance of Urinary Filtration, Intermittent, Less than 6 Hours Per Day (ICD-10-PCS; 2017-06-28 16:30)
PROC: 5A1D70Z Performance of Urinary Filtration, Intermittent, Less than 6 Hours Per Day (ICD-10-PCS; 2017-06-28 16:30)
PROC: 5A1D70Z Performance of Urinary Filtration, Intermittent, Less than 6 Hours Per Day (ICD-10-PCS; 2017-06-28 16:30)
PROC: 5A1D70Z Performance of Urinary Filtration, Intermittent, Less than 6 Hours Per Day (ICD-10-PCS; 2017-06-28 16:30)
DX: I13.2 Hypertensive heart and chronic kidney disease with heart failure and with stage 5 chronic kidney disease, or end stage renal disease (principal); J18.9 Pneumonia, unspecified organism; N18.6 End stage renal disease; I50.33 Acute on chronic diastolic (congestive) heart failure; J96.01 Acute respiratory failure with hypoxia; T82.41XA Breakdown (mechanical) of vascular dialysis catheter, initial encounter; G45.8 Other transient cerebral ischemic attacks and related syndromes; I87.1 Compression of vein; G72.81 Critical illness myopathy; E87.5 Hyperkalemia; E11.22 Type 2 diabetes mellitus with diabetic chronic kidney disease; Z91.15 Patient's noncompliance with renal dialysis; I95.9 Hypotension, unspecified; N63.10 Unspecified lump in the right breast, unspecified quadrant; I16.0 Hypertensive urgency; E78.00 Pure hypercholesterolemia, unspecified; R10.13 Epigastric pain; R76.0 Raised antibody titer; F17.210 Nicotine dependence, cigarettes, uncomplicated; Z87.81 Personal history of (healed) traumatic fracture; M25.552 Pain in left hip; E83.51 Hypocalcemia; E11.649 Type 2 diabetes mellitus with hypoglycemia without coma; E87.70 Fluid overload, unspecified; D63.8 Anemia in other chronic diseases classified elsewhere; Z79.4 Long term (current) use of insulin
CPT/HCPCS: 36415; 36901; 71045; 73721; 74176; 75827; 76642; 76937; 80048; 80053; 80061; 82962; 83036; 83735; 83880; 84100; 84436; 84443; 84479; 84484; 85025; 85610; 85730; 86706; 87070; 87081; 87340; 90935; 93005; 93306; 93971; 94640; 94664; 96374; 96375; 96376; 97162; 97530; 99285-25

== ENCOUNTER 2017-06-30 11:30 | Inpatient (IN) | payer MEDICARE, OTHER ==
[2017-07-01] MEDS ORDERED: HYDROCODONE/APAP (5/325) TAB PO (00:30)
[2017-07-01] MEDS ORDERED: LACTULOSE 30ML CUP PO (01:30)
[2017-07-01] MEDS ORDERED: DEXTROSE 50% 50 ML SYRINGE IV ×2 (01:30)
[2017-07-01] MEDS ORDERED: GLUCOSE GEL 15 GRAM TUBE PO ×2 (01:30)
[2017-07-01] MEDS ORDERED: GLUCAGON 1 MG INJ IM (01:30)
[2017-07-01] MEDS ORDERED: MAGNESIUM HYDROXIDE 30ML CUP PO (01:30)
[2017-07-01] MEDS ORDERED: GLUCOSE GEL 15 GRAM TUBE BUCCAL (01:30)
[2017-07-01] MEDS ORDERED: ACETAMINOPHEN 325 MG TAB PO (01:30)
[2017-07-01] MEDS ORDERED: DOCUSATE SODIUM 100 MG CAP PO (02:00)
[2017-07-01] MEDS ORDERED: ALBUTEROL/IPRATROPIUM (NEB) 3 ML AMP HHN (02:00)
[2017-07-01] MEDS: ACCUCHECK AT 2AM (Patients on SS coverage) XX (02:00)
[2017-07-01] MEDS ORDERED: BISACODYL 10 MG SUPP PR (02:00)
[2017-07-01] MEDS: traMADol 50 MG TAB PO ×2 (03:46→13:36)
[2017-07-01] MEDS: PANTOPRAZOLE (EC) 40 MG TAB PO (06:20)
[2017-07-01 06:46] LABS: ADD MAN DIFF? NO
[2017-07-01 06:48] LABS: WHITE BLOOD COUNT 5.9 10^3/ul (4.8-10.8)
[2017-07-01 06:48] LABS: BASOPHILS % 0.5 % (0.0-2.0); EOSINOPHILS # 0.3 10^3/ul (0.0-0.5); EOSINOPHILS % 4.2 % (0.0-7.0); HEMATOCRIT 29.3 % (37.0-47.0); HEMOGLOBIN 9.9 g/dl (12.0-16.0); LYMPHOCYTES # 1.2 10^3/ul (0.8-2.9); LYMPHOCYTES % 19.4 % (15.0-51.0); MEAN CORPUSCULAR HEMOGLOBIN 31.2 pg (29.0-33.0); MEAN CORPUSCULAR HGB CONC 33.8 g/dl (32.0-37.0); MEAN CORPUSCULAR VOLUME 92.4 fl (82.0-101.0); MEAN PLATELET VOLUME 12.4 fl (7.4-10.4); MONOCYTE # 0.6 10^3/ul (0.3-0.9); MONOCYTES % 10.8 % (0.0-11.0); NEUTROPHIL # 3.8 10^3/ul (1.6-7.5); NEUTROPHILS % 64.8 % (39.0-77.0); PLATELET COUNT 160 10^3/UL (140-415); RED BLOOD COUNT 3.17 10^6/ul (4.20-5.40); RED CELL DISTRIBUTION WIDTH 15.5 % (11.5-14.5)
[2017-07-01] MEDS: Insulin NOVOLOG SS MILD Algorithm (SS with meals and bedtime) SC ×4 (07:35→21:26)
[2017-07-01] MEDS: INSULIN ASPART [NOVOLOG] 3 ML PEN SC ×3 (07:48→17:43)
[2017-07-01] MEDS: SEVELAMER CARBONATE 0.8 GM PKT PO ×3 (07:49→17:35)
[2017-07-01] MEDS: FOLIC ACID 1 MG TAB PO (08:31)
[2017-07-01] MEDS: CLONIDINE 0.3 MG/24 HR PATCH TRANSDERM (08:31)
[2017-07-01] MEDS: MULTIVIT/CA CARB/B CMPLX/FA TAB PO (08:31)
[2017-07-01] MEDS: PAROXETINE 20 MG TAB PO (08:31)
[2017-07-01] MEDS: ASPIRIN 81 MG TAB PO (08:32)
[2017-07-01] MEDS: AMLODIPINE 5 MG TAB PO ×2 (08:32→21:20)
[2017-07-01] MEDS: LISINOPRIL 10 MG TAB PO ×2 (08:32→21:21)
[2017-07-01] MEDS: ATENOLOL 50 MG TAB PO ×2 (08:33→21:21)
[2017-07-01 09:51] LABS: ALANINE AMINOTRANSFERASE 28 IU/L (13-69); ALBUMIN 3.5 g/dl (3.3-4.9); ALBUMIN/GLOBULIN RATIO 1.09; ALKALINE PHOSPHATASE 782 IU/L (42-121); ANION GAP 15 (8-16); ASPARTATE AMINO TRANSFERASE 63 IU/L (15-46); BLOOD UREA NITROGEN 25 mg/dl (7-20); CALCIUM 8.7 mg/dl (8.4-10.2); CARBON DIOXIDE 30 mmol/L (21-31); CHLORIDE 98 mmol/L (97-110); CREATININE 2.88 mg/dl (0.44-1.00); GLUCOSE 122 mg/dl (70-220); POTASSIUM 4.2 mmol/L (3.5-5.1); SODIUM 139 mmol/L (135-144); TOTAL PROTEIN 6.7 g/dl (6.1-8.1)
[2017-07-01] MEDS: GABAPENTIN 100 MG CAP PO ×2 (15:01→21:21)
[2017-07-01] MEDS: SENNA TAB PO (21:21)
[2017-07-02] MEDS: ACCUCHECK AT 2AM (Patients on SS coverage) XX (02:00)
[2017-07-02] MEDS: PANTOPRAZOLE (EC) 40 MG TAB PO (06:25)
[2017-07-02] MEDS: INSULIN ASPART [NOVOLOG] 3 ML PEN SC ×3 (08:13→17:23)
[2017-07-02] MEDS: Insulin NOVOLOG SS MILD Algorithm (SS with meals and bedtime) SC ×4 (08:14→21:02)
[2017-07-02] MEDS: SEVELAMER CARBONATE 0.8 GM PKT PO ×3 (08:15→17:21)
[2017-07-02] MEDS: GABAPENTIN 100 MG CAP PO ×2 (08:17→20:52)
[2017-07-02] MEDS: ASPIRIN 81 MG TAB PO (08:17)
[2017-07-02] MEDS: FOLIC ACID 1 MG TAB PO (08:17)
[2017-07-02] MEDS: PAROXETINE 20 MG TAB PO (08:18)
[2017-07-02] MEDS: AMLODIPINE 5 MG TAB PO ×2 (08:18→20:55)
[2017-07-02] MEDS: MULTIVIT/CA CARB/B CMPLX/FA TAB PO (08:18)
[2017-07-02] MEDS: LISINOPRIL 10 MG TAB PO ×2 (08:19→20:52)
[2017-07-02] MEDS: ATENOLOL 50 MG TAB PO ×2 (08:19→20:54)
[2017-07-02] MEDS: ONDANSETRON 4 MG INJ IV ×3 (10:46→20:50)
[2017-07-02] MEDS: morphine 2 MG INJ IV ×2 (13:52→20:51)
[2017-07-02] MEDS: SENNA TAB PO (20:52)
[2017-07-03] MEDS: ACCUCHECK AT 2AM (Patients on SS coverage) XX (02:35)
[2017-07-03] MEDS: PANTOPRAZOLE (EC) 40 MG TAB PO (06:38)
[2017-07-03] MEDS: morphine 2 MG INJ IV ×3 (07:49→23:18)
[2017-07-03] MEDS: ONDANSETRON 4 MG INJ IV ×3 (07:49→23:18)
[2017-07-03] MEDS: INSULIN ASPART [NOVOLOG] 3 ML PEN SC ×3 (07:50→17:52)
[2017-07-03] MEDS: Insulin NOVOLOG SS MILD Algorithm (SS with meals and bedtime) SC ×4 (07:51→21:10)
[2017-07-03] MEDS: SEVELAMER CARBONATE 0.8 GM PKT PO ×3 (07:52→17:51)
[2017-07-03] MEDS: FOLIC ACID 1 MG TAB PO (08:48)
[2017-07-03] MEDS: PAROXETINE 20 MG TAB PO (08:48)
[2017-07-03] MEDS: GABAPENTIN 100 MG CAP PO ×2 (08:48→20:57)
[2017-07-03] MEDS: MULTIVIT/CA CARB/B CMPLX/FA TAB PO (08:48)
[2017-07-03] MEDS: ASPIRIN 81 MG TAB PO (08:48)
[2017-07-03] MEDS: AMLODIPINE 5 MG TAB PO ×2 (08:50→09:00)
[2017-07-03] MEDS: LISINOPRIL 10 MG TAB PO ×3 (08:51→20:58)
[2017-07-03] MEDS: ATENOLOL 50 MG TAB PO ×2 (08:51→09:00)
[2017-07-03] MEDS: LINAGLIPTIN 5 MG TABLET PO (13:43)
[2017-07-03] MEDS: CLONIDINE 0.2 MG/24 HR PATCH TRANSDERM (15:08)
[2017-07-03] MEDS: SENNA TAB PO (20:57)
[2017-07-04] MEDS: ACCUCHECK AT 2AM (Patients on SS coverage) XX (02:00)
[2017-07-04] MEDS: PANTOPRAZOLE (EC) 40 MG TAB PO (06:20)
[2017-07-04] MEDS: ATENOLOL 50 MG TAB PO (07:43)
[2017-07-04] MEDS: AMLODIPINE 5 MG TAB PO (07:43)
[2017-07-04] MEDS: SEVELAMER CARBONATE 0.8 GM PKT PO ×3 (07:43→17:25)
[2017-07-04] MEDS: INSULIN ASPART [NOVOLOG] 3 ML PEN SC ×3 (07:48→17:30)
[2017-07-04] MEDS: Insulin NOVOLOG SS MILD Algorithm (SS with meals and bedtime) SC ×4 (07:49→21:00)
[2017-07-04] MEDS: GABAPENTIN 100 MG CAP PO ×2 (09:04→20:29)
[2017-07-04] MEDS: PAROXETINE 20 MG TAB PO (09:04)
[2017-07-04] MEDS: FOLIC ACID 1 MG TAB PO (09:04)
[2017-07-04] MEDS: LINAGLIPTIN 5 MG TABLET PO (09:05)
[2017-07-04] MEDS: ASPIRIN 81 MG TAB PO (09:05)
[2017-07-04] MEDS: morphine 2 MG INJ IV ×2 (09:05→23:32)
[2017-07-04] MEDS: MULTIVIT/CA CARB/B CMPLX/FA TAB PO (09:05)
[2017-07-04] MEDS: LISINOPRIL 10 MG TAB PO ×2 (09:06→20:29)
[2017-07-04] MEDS: traMADol 50 MG TAB PO (17:25)
[2017-07-04] MEDS: SENNA TAB PO (21:00)
[2017-07-05] MEDS: ACCUCHECK AT 2AM (Patients on SS coverage) XX (02:00)
[2017-07-05] MEDS: PANTOPRAZOLE (EC) 40 MG TAB PO (06:20)
[2017-07-05] MEDS: SEVELAMER CARBONATE 0.8 GM PKT PO ×3 (07:37→18:15)
[2017-07-05] MEDS: INSULIN ASPART [NOVOLOG] 3 ML PEN SC ×3 (07:41→17:35)
[2017-07-05] MEDS: Insulin NOVOLOG SS MILD Algorithm (SS with meals and bedtime) SC ×4 (07:41→20:58)
[2017-07-05] MEDS: AMLODIPINE 5 MG TAB PO (07:43)
[2017-07-05] MEDS: ATENOLOL 50 MG TAB PO (07:44)
[2017-07-05] MEDS: GABAPENTIN 100 MG CAP PO ×3 (08:28→20:57)
[2017-07-05] MEDS: FOLIC ACID 1 MG TAB PO (08:28)
[2017-07-05] MEDS: PAROXETINE 20 MG TAB PO (08:28)
[2017-07-05] MEDS: MULTIVIT/CA CARB/B CMPLX/FA TAB PO (08:29)
[2017-07-05] MEDS: LINAGLIPTIN 5 MG TABLET PO (08:29)
[2017-07-05] MEDS: traMADol 50 MG TAB PO ×2 (08:29→20:18)
[2017-07-05] MEDS: ASPIRIN 81 MG TAB PO (08:29)
[2017-07-05] MEDS: LISINOPRIL 10 MG TAB PO ×2 (08:30→20:58)
[2017-07-05] MEDS: LIDOCAINE 5% PATCH TD (13:30)
[2017-07-05] MEDS: DOCUSATE SODIUM 100 MG CAP PO (20:57)
[2017-07-05] MEDS: SENNA TAB PO (20:57)
[2017-07-06] MEDS: ACCUCHECK AT 2AM (Patients on SS coverage) XX (02:00)
[2017-07-06] MEDS: PANTOPRAZOLE (EC) 40 MG TAB PO (06:38)
[2017-07-06] MEDS: traMADol 50 MG TAB PO ×4 (06:38→20:24)
[2017-07-06] MEDS: AMLODIPINE 5 MG TAB PO (06:39)
[2017-07-06] MEDS: ATENOLOL 50 MG TAB PO (06:39)
[2017-07-06] MEDS: SEVELAMER CARBONATE 0.8 GM PKT PO ×3 (07:33→17:48)
[2017-07-06] MEDS: INSULIN ASPART [NOVOLOG] 3 ML PEN SC ×3 (07:36→17:55)
[2017-07-06] MEDS: Insulin NOVOLOG SS MILD Algorithm (SS with meals and bedtime) SC ×4 (07:37→20:25)
[2017-07-06] MEDS: GABAPENTIN 100 MG CAP PO ×3 (08:08→20:23)
[2017-07-06] MEDS: PAROXETINE 20 MG TAB PO (08:08)
[2017-07-06] MEDS: DOCUSATE SODIUM 100 MG CAP PO ×2 (08:08→20:23)
[2017-07-06] MEDS: FOLIC ACID 1 MG TAB PO (08:09)
[2017-07-06] MEDS: LIDOCAINE 5% PATCH TD (08:09)
[2017-07-06] MEDS: LISINOPRIL 10 MG TAB PO ×2 (08:09→20:24)
[2017-07-06] MEDS: MULTIVIT/CA CARB/B CMPLX/FA TAB PO (08:09)
[2017-07-06] MEDS: LINAGLIPTIN 5 MG TABLET PO (08:09)
[2017-07-06] MEDS: ASPIRIN 81 MG TAB PO (08:09)
[2017-07-06 09:13] LABS: ANION GAP 16 (8-16); BLOOD UREA NITROGEN 35 mg/dl (7-20); CALCIUM 8.4 mg/dl (8.4-10.2); CARBON DIOXIDE 28 mmol/L (21-31); CHLORIDE 94 mmol/L (97-110); CREATININE 3.33 mg/dl (0.44-1.00); GLUCOSE 271 mg/dl (70-220); POTASSIUM 4.9 mmol/L (3.5-5.1); SODIUM 133 mmol/L (135-144)
[2017-07-06] MEDS: SENNA TAB PO (20:23)
[2017-07-07] MEDS: ACCUCHECK AT 2AM (Patients on SS coverage) XX (02:00)
[2017-07-07] MEDS: PANTOPRAZOLE (EC) 40 MG TAB PO (06:31)
[2017-07-07] MEDS: AMLODIPINE 5 MG TAB PO (06:31)
[2017-07-07] MEDS: ATENOLOL 50 MG TAB PO (06:32)
[2017-07-07] MEDS: Insulin NOVOLOG SS MILD Algorithm (SS with meals and bedtime) SC ×4 (07:35→21:00)
[2017-07-07] MEDS: SEVELAMER CARBONATE 0.8 GM PKT PO ×3 (08:00→17:47)
[2017-07-07] MEDS: INSULIN ASPART [NOVOLOG] 3 ML PEN SC ×3 (08:02→17:49)
[2017-07-07] MEDS: IBUPROFEN 400 MG TAB PO (08:02)
[2017-07-07] MEDS: PAROXETINE 20 MG TAB PO (08:02)
[2017-07-07] MEDS: LIDOCAINE 5% PATCH TD (08:10)
[2017-07-07] MEDS: MULTIVIT/CA CARB/B CMPLX/FA TAB PO (08:10)
[2017-07-07] MEDS: traMADol 50 MG TAB PO ×2 (08:10→16:30)
[2017-07-07] MEDS: ASPIRIN 81 MG TAB PO (08:10)
[2017-07-07] MEDS: FOLIC ACID 1 MG TAB PO (08:11)
[2017-07-07] MEDS: LINAGLIPTIN 5 MG TABLET PO (08:11)
[2017-07-07] MEDS: DOCUSATE SODIUM 100 MG CAP PO ×2 (08:11→21:00)
[2017-07-07] MEDS: GABAPENTIN 100 MG CAP PO ×2 (08:11→16:30)
[2017-07-07] MEDS: LISINOPRIL 10 MG TAB PO (09:00)
[2017-07-07] MEDS: HYDROmorphONE 2 MG TAB PO (10:05)
[2017-07-07] MEDS: SENNA TAB PO (21:00)
[2017-07-08] MEDS: LISINOPRIL 10 MG TAB PO ×3 (00:55→20:48)
[2017-07-08] MEDS: GABAPENTIN 100 MG CAP PO ×4 (00:55→20:47)
[2017-07-08] MEDS: traMADol 50 MG TAB PO ×2 (01:00→17:44)
[2017-07-08] MEDS: ACCUCHECK AT 2AM (Patients on SS coverage) XX (02:00)
[2017-07-08] MEDS: PANTOPRAZOLE (EC) 40 MG TAB PO (06:41)
[2017-07-08] MEDS: AMLODIPINE 5 MG TAB PO (06:42)
[2017-07-08] MEDS: ATENOLOL 50 MG TAB PO (06:42)
[2017-07-08] MEDS: SEVELAMER CARBONATE 0.8 GM PKT PO ×3 (07:56→17:28)
[2017-07-08] MEDS: INSULIN ASPART [NOVOLOG] 3 ML PEN SC ×3 (08:00→17:49)
[2017-07-08] MEDS: Insulin NOVOLOG SS MILD Algorithm (SS with meals and bedtime) SC ×4 (08:01→20:59)
[2017-07-08] MEDS: MULTIVIT/CA CARB/B CMPLX/FA TAB PO (09:00)
[2017-07-08] MEDS: DOCUSATE SODIUM 100 MG CAP PO ×2 (09:00→20:47)
[2017-07-08] MEDS: FOLIC ACID 1 MG TAB PO (09:00)
[2017-07-08] MEDS: LIDOCAINE 5% PATCH TD (09:00)
[2017-07-08] MEDS: HYDROmorphONE 2 MG TAB PO ×2 (11:07→16:46)
[2017-07-08] MEDS: ASPIRIN 81 MG TAB PO (13:56)
[2017-07-08] MEDS: LINAGLIPTIN 5 MG TABLET PO (13:56)
[2017-07-08] MEDS: PAROXETINE 20 MG TAB PO (13:56)
[2017-07-08] MEDS: SENNA TAB PO (20:47)
[2017-07-09] MEDS: ACCUCHECK AT 2AM (Patients on SS coverage) XX (02:07)
[2017-07-09] MEDS: PANTOPRAZOLE (EC) 40 MG TAB PO (05:45)
[2017-07-09] MEDS: ATENOLOL 50 MG TAB PO (06:39)
[2017-07-09] MEDS: AMLODIPINE 5 MG TAB PO (06:39)
[2017-07-09] MEDS: INSULIN ASPART [NOVOLOG] 3 ML PEN SC ×3 (07:54→20:31)
[2017-07-09] MEDS: Insulin NOVOLOG SS MILD Algorithm (SS with meals and bedtime) SC ×4 (07:55→21:00)
[2017-07-09] MEDS: SEVELAMER CARBONATE 0.8 GM PKT PO ×3 (07:55→20:26)
[2017-07-09] MEDS: traMADol 50 MG TAB PO ×3 (08:48→20:23)
[2017-07-09] MEDS: PAROXETINE 20 MG TAB PO (08:51)
[2017-07-09] MEDS: DOCUSATE SODIUM 100 MG CAP PO ×2 (08:51→20:22)
[2017-07-09] MEDS: LIDOCAINE 5% PATCH TD (08:51)
[2017-07-09] MEDS: LINAGLIPTIN 5 MG TABLET PO (08:51)
[2017-07-09] MEDS: GABAPENTIN 100 MG CAP PO ×3 (08:51→20:23)
[2017-07-09] MEDS: MULTIVIT/CA CARB/B CMPLX/FA TAB PO (08:51)
[2017-07-09] MEDS: ASPIRIN 81 MG TAB PO (08:52)
[2017-07-09] MEDS: LISINOPRIL 10 MG TAB PO (09:03)
[2017-07-09] MEDS: FOLIC ACID 1 MG TAB PO (09:04)
[2017-07-09 09:15] LABS: ADD MAN DIFF? NO
[2017-07-09 09:26] LABS: WHITE BLOOD COUNT 5.8 10^3/ul (4.8-10.8)
[2017-07-09 09:26] LABS: BASOPHIL # 0.1 10^3/ul (0.0-0.1); BASOPHILS % 0.9 % (0.0-2.0); EOSINOPHILS # 0.2 10^3/ul (0.0-0.5); HEMATOCRIT 26.7 % (37.0-47.0); HEMOGLOBIN 8.9 g/dl (12.0-16.0); LYMPHOCYTES # 1.2 10^3/ul (0.8-2.9); LYMPHOCYTES % 20.2 % (15.0-51.0); MEAN CORPUSCULAR HEMOGLOBIN 30.8 pg (29.0-33.0); MEAN CORPUSCULAR HGB CONC 33.3 g/dl (32.0-37.0); MEAN CORPUSCULAR VOLUME 92.4 fl (82.0-101.0); MEAN PLATELET VOLUME 12.2 fl (7.4-10.4); MONOCYTE # 0.8 10^3/ul (0.3-0.9); MONOCYTES % 13.1 % (0.0-11.0); NEUTROPHIL # 3.6 10^3/ul (1.6-7.5); NEUTROPHILS % 61.6 % (39.0-77.0); PLATELET COUNT 148 10^3/UL (140-415); RED BLOOD COUNT 2.89 10^6/ul (4.20-5.40); RED CELL DISTRIBUTION WIDTH 15.6 % (11.5-14.5)
[2017-07-09 09:39] LABS: ANION GAP 18 (8-16); BLOOD UREA NITROGEN 41 mg/dl (7-20); CALCIUM 8.5 mg/dl (8.4-10.2); CARBON DIOXIDE 28 mmol/L (21-31); CHLORIDE 92 mmol/L (97-110); CREATININE 4.01 mg/dl (0.44-1.00); GLUCOSE 154 mg/dl (70-220); POTASSIUM 5.6 mmol/L (3.5-5.1); SODIUM 132 mmol/L (135-144)
[2017-07-09] MEDS: BETAMET NA PHOS/AC(6 MG/ML) 5ML INJ INJ (17:07)
[2017-07-09] MEDS: BUPIVACAINE 0.5%/EPI (SDV) 30 ML INJ INJ (17:07)
[2017-07-09] MEDS: SENNA TAB PO (20:22)
[2017-07-10] MEDS: traMADol 50 MG TAB PO ×2 (01:58→20:38)
[2017-07-10] MEDS: ACCUCHECK AT 2AM (Patients on SS coverage) XX (02:00)
[2017-07-10] MEDS: PANTOPRAZOLE (EC) 40 MG TAB PO (06:45)
[2017-07-10] MEDS: INSULIN ASPART [NOVOLOG] 3 ML PEN SC ×3 (07:57→17:47)
[2017-07-10] MEDS: Insulin NOVOLOG SS MILD Algorithm (SS with meals and bedtime) SC ×4 (07:58→20:38)
[2017-07-10] MEDS: SEVELAMER CARBONATE 0.8 GM PKT PO ×3 (08:01→17:44)
[2017-07-10] MEDS: ATENOLOL 50 MG TAB PO (08:05)
[2017-07-10] MEDS: AMLODIPINE 5 MG TAB PO (08:05)
[2017-07-10] MEDS: ASPIRIN 81 MG TAB PO (10:20)
[2017-07-10] MEDS: DOCUSATE SODIUM 100 MG CAP PO ×2 (10:21→20:40)
[2017-07-10] MEDS: GABAPENTIN 100 MG CAP PO ×3 (10:21→20:37)
[2017-07-10] MEDS: PAROXETINE 20 MG TAB PO (10:21)
[2017-07-10] MEDS: FOLIC ACID 1 MG TAB PO (10:21)
[2017-07-10] MEDS: LINAGLIPTIN 5 MG TABLET PO (10:22)
[2017-07-10] MEDS: MULTIVIT/CA CARB/B CMPLX/FA TAB PO (10:22)
[2017-07-10] MEDS: LISINOPRIL 20 MG TAB PO (10:23)
[2017-07-10] MEDS: LIDOCAINE 5% PATCH TD (10:23)
[2017-07-10] MEDS: CLONIDINE 0.2 MG/24 HR PATCH TRANSDERM (11:45)
[2017-07-10] MEDS: EPOETIN 3000 UNITS/1 ML INJ (ESRD) SC (15:21)
[2017-07-10] MEDS: SENNA TAB PO (20:40)
[2017-07-10] MEDS: ONDANSETRON 4 MG INJ IV (21:27)
[2017-07-11] MEDS: ACCUCHECK AT 2AM (Patients on SS coverage) XX (02:00)
[2017-07-11] MEDS: PANTOPRAZOLE (EC) 40 MG TAB PO (06:20)
[2017-07-11] MEDS: INSULIN ASPART [NOVOLOG] 3 ML PEN SC ×3 (07:52→12:00)
[2017-07-11] MEDS: Insulin NOVOLOG SS MILD Algorithm (SS with meals and bedtime) SC ×2 (07:53→12:00)
[2017-07-11] MEDS: SEVELAMER CARBONATE 0.8 GM PKT PO ×2 (07:53→11:56)
[2017-07-11] MEDS: HYDROmorphONE 2 MG TAB PO ×2 (08:07→15:44)
[2017-07-11] MEDS: AMLODIPINE 5 MG TAB PO (08:37)
[2017-07-11] MEDS: ATENOLOL 50 MG TAB PO (08:38)
[2017-07-11] MEDS: DOCUSATE SODIUM 100 MG CAP PO (11:09)
[2017-07-11] MEDS: PAROXETINE 20 MG TAB PO (11:09)
[2017-07-11] MEDS: FOLIC ACID 1 MG TAB PO (11:09)
[2017-07-11] MEDS: GABAPENTIN 100 MG CAP PO ×2 (11:09→15:43)
[2017-07-11] MEDS: LINAGLIPTIN 5 MG TABLET PO (11:10)
[2017-07-11] MEDS: LISINOPRIL 20 MG TAB PO (11:11)
[2017-07-11] MEDS: ASPIRIN 81 MG TAB PO (11:12)
[2017-07-11] MEDS: MULTIVIT/CA CARB/B CMPLX/FA TAB PO (11:12)
[2017-07-11] MEDS: LIDOCAINE 5% PATCH TD (11:12)
== END 2017-07-11 18:00 | disposition home health service (06) | DRG 91 ==
LOC: VRC 07-09 14:42
PROVIDERS: Physical Medicine & Rehabilitation
PROC: 5A1D70Z Performance of Urinary Filtration, Intermittent, Less than 6 Hours Per Day (ICD-10-PCS; principal; 2017-07-01)
DX: G72.9 Myopathy, unspecified (principal); N18.6 End stage renal disease; I12.0 Hypertensive chronic kidney disease with stage 5 chronic kidney disease or end stage renal disease; I50.32 Chronic diastolic (congestive) heart failure; S70.02XD Contusion of left hip, subsequent encounter; Z99.2 Dependence on renal dialysis; M70.62 Trochanteric bursitis, left hip; E78.5 Hyperlipidemia, unspecified; E11.9 Type 2 diabetes mellitus without complications; G89.29 Other chronic pain; F06.31 Mood disorder due to known physiological condition with depressive features; F06.8 Other specified mental disorders due to known physiological condition; I11.0 Hypertensive heart disease with heart failure; I50.84 End stage heart failure; R60.9 Edema, unspecified
CPT/HCPCS: 80048; 80053; 82962; 85025; 87081; 90935; 93971; 97110; 97112; 97116; 97163; 97167; 97530; 97535; 97542

== ENCOUNTER 2017-10-07 04:18 | Emergency (ER) | payer MEDICARE, OTHER ==
[2017-10-07] MEDS: ONDANSETRON 4 MG INJ IV (04:49)
[2017-10-07] MEDS: morphine 2 MG INJ IV (04:50)
[2017-10-07 04:51] LABS: ADD MAN DIFF? NO
[2017-10-07 04:52] LABS: WHITE BLOOD COUNT 9.1 10^3/ul (4.8-10.8)
[2017-10-07 04:53] LABS: BASOPHIL # 0.1 10^3/ul (0.0-0.1); BASOPHILS % 0.7 % (0.0-2.0); EOSINOPHILS # 0.4 10^3/ul (0.0-0.5); EOSINOPHILS % 4.8 % (0.0-7.0); HEMATOCRIT 30.5 % (37.0-47.0); HEMOGLOBIN 10.1 g/dl (12.0-16.0); LYMPHOCYTES # 1.1 10^3/ul (0.8-2.9); LYMPHOCYTES % 11.8 % (15.0-51.0); MEAN CORPUSCULAR HEMOGLOBIN 32.5 pg (29.0-33.0); MEAN CORPUSCULAR HGB CONC 33.1 g/dl (32.0-37.0); MEAN CORPUSCULAR VOLUME 98.1 fl (82.0-101.0); MEAN PLATELET VOLUME 11.8 fl (7.4-10.4); MONOCYTE # 0.8 10^3/ul (0.3-0.9); MONOCYTES % 8.4 % (0.0-11.0); NEUTROPHIL # 6.7 10^3/ul (1.6-7.5); NEUTROPHILS % 73.9 % (39.0-77.0); PLATELET COUNT 206 10^3/UL (140-415); RED BLOOD COUNT 3.11 10^6/ul (4.20-5.40); RED CELL DISTRIBUTION WIDTH 16.4 % (11.5-14.5)
[2017-10-07 05:12] LABS: ALANINE AMINOTRANSFERASE 53 IU/L (13-69); ALBUMIN 3.9 g/dl (3.3-4.9); ALBUMIN/GLOBULIN RATIO 1.02; ALKALINE PHOSPHATASE 1305 IU/L (42-121); ANION GAP 19 (8-16); ASPARTATE AMINO TRANSFERASE 112 IU/L (15-46); BILIRUBIN,INDIRECT 0.4 mg/dl (0-1.1); BILIRUBIN,TOTAL 0.4 mg/dl (0.2-1.3); BLOOD UREA NITROGEN 35 mg/dl (7-20); CALCIUM 8.7 mg/dl (8.4-10.2); CARBON DIOXIDE 26 mmol/L (21-31); CHLORIDE 96 mmol/L (97-110); CREATINE KINASE 111 IU/L (23-200); CREATININE 3.41 mg/dl (0.44-1.00); GLUCOSE 136 mg/dl (70-220); LIPASE 62 U/L (23-300); POTASSIUM 4.8 mmol/L (3.5-5.1); SODIUM 136 mmol/L (135-144); TOTAL PROTEIN 7.7 g/dl (6.1-8.1)
== END 2017-10-07 06:23 | disposition home or self-care (01) ==
LOC: E/R 04:18
DX: M25.551 Pain in right hip (principal); D64.9 Anemia, unspecified; R94.5 Abnormal results of liver function studies; I50.9 Heart failure, unspecified; I12.0 Hypertensive chronic kidney disease with stage 5 chronic kidney disease or end stage renal disease; N18.6 End stage renal disease; Z99.2 Dependence on renal dialysis; Z79.4 Long term (current) use of insulin; Z79.82 Long term (current) use of aspirin
CPT/HCPCS: 36415; 73502; 73510; 80053; 82550; 83690; 85025; 93971; 96374; 96375; 99285-25

== ENCOUNTER 2018-02-20 10:48 | Inpatient (IN) | payer MEDICARE, OTHER ==
[2018-02-20 11:27] LABS: ADD MAN DIFF? NO
[2018-02-20] MEDS ORDERED: IBUPROFEN 200 MG TAB PO (11:30)
[2018-02-20 11:35] LABS: WHITE BLOOD COUNT 10.2 10^3/ul (4.8-10.8)
[2018-02-20 11:35] LABS: ABNORMAL IP MESSAGE 1; BASOPHIL # 0.1 10^3/ul (0.0-0.1); BASOPHILS % 0.6 % (0.0-2.0); EOSINOPHILS # 0.4 10^3/ul (0.0-0.5); EOSINOPHILS % 3.8 % (0.0-7.0); HEMATOCRIT 28.3 % (37.0-47.0); HEMOGLOBIN 10.2 g/dl (12.0-16.0); LYMPHOCYTES # 1.5 10^3/ul (0.8-2.9); MEAN CORPUSCULAR VOLUME 94.3 fl (82.0-101.0); MONOCYTE # 0.7 10^3/ul (0.3-0.9); MONOCYTES % 7.3 % (0.0-11.0); NEUTROPHIL # 7.4 10^3/ul (1.6-7.5); NEUTROPHILS % 72.4 % (39.0-77.0); NUCLEATED RED BLOOD CELLS% 0.3 /100WBC (0.0-0.0); PLATELET COUNT 348 10^3/UL (140-415); RED CELL DISTRIBUTION WIDTH 19.4 % (11.5-14.5)
[2018-02-20 11:39] LABS: POSITIVE DIFF @See below
[2018-02-20] MEDS: CEFTRIAXONE 1 GM/50 ML (PMX) 50 ML IVPB (11:55)
[2018-02-20 12:07] LABS: ANION GAP 22 (5-13); BLOOD UREA NITROGEN 108 mg/dl (7-20); CALCIUM 8.9 mg/dl (8.4-10.2); CARBON DIOXIDE 18 mmol/L (21-31); CHLORIDE 96 mmol/L (97-110); CREATININE 4.51 mg/dl (0.44-1.00); Estimated GFR 10 mL/min (>60); GLUCOSE 145 mg/dl (70-220); SODIUM 136 mmol/L (135-144)
[2018-02-20 12:08] LABS: POTASSIUM 6.2 mmol/L (3.5-5.1)
[2018-02-20 12:21] LABS: TROPONIN-I 0.013 ng/ml (0.000-0.120)
[2018-02-20 12:59] LABS: INR 0.77; PROTIME 10.8 Sec (11.9-14.9); PT RATIO 0.8
[2018-02-20 13:00] LABS: PARTIAL THROMBOPLASTIN TIME 30.1 Sec (23.0-35.0)
[2018-02-20] MEDS ORDERED: ONDANSETRON 4 MG INJ IV (14:00)
[2018-02-20] MEDS: NA BICARBONATE 8.4% 50 ML SYG IV (14:08)
[2018-02-20] MEDS: NA POLYST SULFON 15 GM/60 ML BTL PO (14:08)
[2018-02-20] MEDS: ALBUTEROL 0.5% (NEB) 2.5 MG/0.5 ML AMP INH (14:13)
[2018-02-20] MEDS ORDERED: DOCUSATE SODIUM 100 MG CAP PO (15:00)
[2018-02-20] MEDS ORDERED: NACL 0.9% 3 ML SYG IV (15:00)
[2018-02-20 15:35] LABS: LACTIC ACID 1.1 mmol/L (0.5-2.0)
[2018-02-20 15:40] LABS: AMMONIA 49 umol/l (9-30)
[2018-02-20 15:52] LABS: B-TYPE NATRIURETIC PEPTIDE 23400 PG/ML (0-125)
[2018-02-20] MEDS ORDERED: GLUCAGON 1 MG INJ IM (16:00)
[2018-02-20] MEDS ORDERED: GLUCOSE GEL 15 GRAM TUBE BUCCAL (16:00)
[2018-02-20] MEDS ORDERED: DEXTROSE 50% 50 ML SYRINGE IV (16:00)
[2018-02-20] MEDS ORDERED: GLUCOSE GEL 15 GRAM TUBE PO ×2 (16:00)
[2018-02-20 16:21] LABS: CREATINE KINASE 195 IU/L (23-200)
[2018-02-20 16:35] LABS: CK INDEX 2.9; CK-MB 5.58 ng/ml (0.0-2.4); TROPONIN-I < 0.012 ng/ml (0.000-0.120)
[2018-02-20] MEDS: INSULIN ASPART [NOVOLOG] 3 ML PEN SC ×3 (17:23→21:00)
[2018-02-20] MEDS: SEVELAMER CARBONATE 0.8 GM PKT PO (17:23)
[2018-02-20] MEDS: INFLUENZA VIRUS VACCINE 0.5 ML (DISPENSING) IM* (18:37)
[2018-02-20] MEDS: HYDROmorphONE 0.5 MG/0.5 ML SYG IV (20:00)
[2018-02-20] MEDS ORDERED: HEPARIN 5,000 UNIT/1 ML VIAL SC (21:00)
[2018-02-20] MEDS: INSULIN GLARGINE [LANTus] (100 UNITS/ML) SYG SC (21:00)
[2018-02-20] MEDS ORDERED: FAMOTIDINE 20 MG TAB PO (21:00)
[2018-02-20 21:23] LABS: CREATINE KINASE 178 IU/L (23-200)
[2018-02-20 21:37] LABS: CK INDEX 3.1; CK-MB 5.59 ng/ml (0.0-2.4); TROPONIN-I < 0.012 ng/ml (0.000-0.120)
[2018-02-20] MEDS: ONDANSETRON 4 MG INJ IV (22:09)
[2018-02-21] LABS: HEPATITIS B SURFACE ANTIGEN NEGATIVE (NEGATIVE)
[2018-02-21] MEDS: METOPROLOL 25 MG TAB PO ×2 (00:56→09:30)
[2018-02-21] MEDS: ACCU-CHEK XX (02:00)
[2018-02-21] MEDS: HYDROmorphONE 0.5 MG/0.5 ML SYG IV ×2 (02:04→21:27)
[2018-02-21] MEDS: hydrALAzine 20 MG INJ IV (04:26)
[2018-02-21] MEDS: PANTOPRAZOLE (EC) 40 MG TAB PO (05:44)
[2018-02-21 06:19] LABS: ADD MAN DIFF? NO
[2018-02-21 06:39] LABS: WHITE BLOOD COUNT 6.9 10^3/ul (4.8-10.8)
[2018-02-21 06:39] LABS: BASOPHIL # 0.1 10^3/ul (0.0-0.1); BASOPHILS % 0.7 % (0.0-2.0); EOSINOPHILS # 0.2 10^3/ul (0.0-0.5); EOSINOPHILS % 3.1 % (0.0-7.0); HEMATOCRIT 28.2 % (37.0-47.0); HEMOGLOBIN 9.7 g/dl (12.0-16.0); LYMPHOCYTES # 0.8 10^3/ul (0.8-2.9); LYMPHOCYTES % 11.1 % (15.0-51.0); MEAN CORPUSCULAR HEMOGLOBIN 32.6 pg (29.0-33.0); MEAN CORPUSCULAR HGB CONC 34.4 g/dl (32.0-37.0); MEAN CORPUSCULAR VOLUME 94.6 fl (82.0-101.0); MONOCYTE # 0.7 10^3/ul (0.3-0.9); MONOCYTES % 10.6 % (0.0-11.0); NEUTROPHIL # 5.1 10^3/ul (1.6-7.5); NEUTROPHILS % 73.8 % (39.0-77.0); NUCLEATED RED BLOOD CELLS% 0.3 /100WBC (0.0-0.0); PLATELET COUNT 216 10^3/UL (140-415); RED BLOOD COUNT 2.98 10^6/ul (4.20-5.40); RED CELL DISTRIBUTION WIDTH 17.5 % (11.5-14.5)
[2018-02-21 06:58] LABS: PHOSPHORUS 6.1 mg/dl (2.5-4.9)
[2018-02-21 07:42] LABS: ALANINE AMINOTRANSFERASE 50 IU/L (13-69); ALBUMIN 4.1 g/dl (3.3-4.9); ALBUMIN/GLOBULIN RATIO 1.32; ALKALINE PHOSPHATASE 1006 IU/L (42-121); ANION GAP 13 (5-13); ASPARTATE AMINO TRANSFERASE 63 IU/L (15-46); BLOOD UREA NITROGEN 53 mg/dl (7-20); CALCIUM 9.1 mg/dl (8.4-10.2); CARBON DIOXIDE 29 mmol/L (21-31); CHLORIDE 98 mmol/L (97-110); CREATININE 3.29 mg/dl (0.44-1.00); Estimated GFR 14 mL/min (>60); GLUCOSE 164 mg/dl (70-220); MAGNESIUM 2.1 mg/dl (1.7-2.5); POTASSIUM 4.2 mmol/L (3.5-5.1); SODIUM 140 mmol/L (135-144); TOTAL PROTEIN 7.2 g/dl (6.1-8.1); TRIGLYCERIDES 48 mg/dl (0-149)
[2018-02-21 07:52] LABS: CHOLESTEROL 352 mg/dl (100-200)
[2018-02-21 07:53] LABS: CHOL/HDL RATIO 2.1 RATIO; HDL CHOLESTEROL 167 mg/dl (35-98); LDL CHOLESTEROL,CALCULATED 175 mg/dl
[2018-02-21 08:09] LABS: HEMOGLOBIN A1C 5.5 % (0-5.9)
[2018-02-21] MEDS: SEVELAMER CARBONATE 0.8 GM PKT PO ×3 (08:12→17:45)
[2018-02-21] MEDS: INSULIN ASPART [NOVOLOG] 3 ML PEN SC ×7 (08:18→21:13)
[2018-02-21 09:15] LABS: BILIRUBIN,INDIRECT 0.1 mg/dl (0-1.1); BILIRUBIN,TOTAL 0.1 mg/dl (0.2-1.3)
[2018-02-21] MEDS: MULTIVIT/CA CARB/B CMPLX/FA TAB PO (09:29)
[2018-02-21] MEDS: ASPIRIN 81 MG TAB PO (09:29)
[2018-02-21] MEDS: FOLIC ACID 1 MG TAB PO (09:29)
[2018-02-21] MEDS: AMLODIPINE 2.5 MG TAB PO (09:31)
[2018-02-21] MEDS: NEOMYC/POLYMYX/HC 10 ML OTIC SUSP BOTH EARS ×2 (12:23→21:03)
[2018-02-21] MEDS: IBUPROFEN 600 MG TAB PO ×2 (13:05→19:31)
[2018-02-21] MEDS ORDERED: HYDROCODONE/APAP (5/325) TAB PO (18:00)
[2018-02-21] MEDS: INSULIN GLARGINE [LANTus] (100 UNITS/ML) SYG SC (23:58)
[2018-02-22] MEDS: ONDANSETRON 4 MG INJ IV ×3 (01:25→22:16)
[2018-02-22] MEDS: ACCU-CHEK XX (02:00)
[2018-02-22] MEDS: HYDROmorphONE 0.5 MG/0.5 ML SYG IV ×3 (02:38→22:16)
[2018-02-22 05:35] LABS: ADD MAN DIFF? NO
[2018-02-22 05:41] LABS: BASOPHIL # 0.1 10^3/ul (0.0-0.1); BASOPHILS % 0.9 % (0.0-2.0); EOSINOPHILS # 0.4 10^3/ul (0.0-0.5); EOSINOPHILS % 5.8 % (0.0-7.0); HEMATOCRIT 27.7 % (37.0-47.0); HEMOGLOBIN 9.4 g/dl (12.0-16.0); LYMPHOCYTES % 13.7 % (15.0-51.0); MEAN CORPUSCULAR HEMOGLOBIN 32.9 pg (29.0-33.0); MEAN CORPUSCULAR HGB CONC 33.9 g/dl (32.0-37.0); MEAN CORPUSCULAR VOLUME 96.9 fl (82.0-101.0); MEAN PLATELET VOLUME 11.7 fl (7.4-10.4); MONOCYTES % 13.7 % (0.0-11.0); NEUTROPHIL # 4.6 10^3/ul (1.6-7.5); NEUTROPHILS % 65.5 % (39.0-77.0); PLATELET COUNT 215 10^3/UL (140-415); RED BLOOD COUNT 2.86 10^6/ul (4.20-5.40); RED CELL DISTRIBUTION WIDTH 17.9 % (11.5-14.5)
[2018-02-22] MEDS: PANTOPRAZOLE (EC) 40 MG TAB PO ×2 (06:12→20:55)
[2018-02-22 06:26] LABS: ANION GAP 17 (5-13); BLOOD UREA NITROGEN 75 mg/dl (7-20); CALCIUM 8.5 mg/dl (8.4-10.2); CARBON DIOXIDE 25 mmol/L (21-31); CHLORIDE 97 mmol/L (97-110); CREATININE 4.52 mg/dl (0.44-1.00); Estimated GFR 10 mL/min (>60); GLUCOSE 104 mg/dl (70-220); POTASSIUM 4.7 mmol/L (3.5-5.1); SODIUM 139 mmol/L (135-144)
[2018-02-22] MEDS: FOLIC ACID 1 MG TAB PO (08:31)
[2018-02-22] MEDS: MULTIVIT/CA CARB/B CMPLX/FA TAB PO (08:31)
[2018-02-22] MEDS: ASPIRIN 81 MG TAB PO (08:31)
[2018-02-22] MEDS: IBUPROFEN 600 MG TAB PO (08:43)
[2018-02-22] MEDS: SEVELAMER CARBONATE 0.8 GM PKT PO ×3 (08:43→17:07)
[2018-02-22] MEDS: hydrALAzine 20 MG INJ IV ×3 (08:44→22:16)
[2018-02-22] MEDS: NEOMYC/POLYMYX/HC 10 ML OTIC SUSP BOTH EARS ×2 (08:44→20:55)
[2018-02-22] MEDS: INSULIN ASPART [NOVOLOG] 3 ML PEN SC ×7 (08:56→20:55)
[2018-02-22] MEDS ORDERED: VANCOMYCIN IV PER PHARMACY XX (10:00)
[2018-02-22 12:36] LABS: CARCINOEMBRYONIC ANTIGEN 2.8 ng/ml (0.0-5.0)
[2018-02-22] MEDS: METOCLOPRAMIDE 10 MG INJ IV (16:41)
[2018-02-22] MEDS: CEFEPIME 1GM/50 ML (PMX) 50 ML IVPB (16:42)
[2018-02-22] MEDS: AMLODIPINE 2.5 MG TAB PO (16:52)
[2018-02-22] MEDS: VANCOMYCIN 1 GM 250 ML IVPB (17:37)
[2018-02-22] MEDS: EPOETIN 4000 UNITS/1 ML INJ (ESRD) SC (17:42)
[2018-02-22] MEDS: INSULIN GLARGINE [LANTus] (100 UNITS/ML) SYG SC (20:55)
[2018-02-23] MEDS: ACCU-CHEK XX (01:36)
[2018-02-23] MEDS: METOCLOPRAMIDE 10 MG INJ IV ×4 (04:14→17:27)
[2018-02-23] MEDS: hydrALAzine 20 MG INJ IV ×3 (04:14→19:57)
[2018-02-23] MEDS: PANTOPRAZOLE (EC) 40 MG TAB PO ×2 (04:14→05:54)
[2018-02-23] MEDS: HYDROmorphONE 0.5 MG/0.5 ML SYG IV ×3 (04:15→19:58)
[2018-02-23 05:35] LABS: ADD MAN DIFF? NO
[2018-02-23 05:46] LABS: BASOPHIL # 0.1 10^3/ul (0.0-0.1); BASOPHILS % 0.8 % (0.0-2.0); EOSINOPHILS # 0.4 10^3/ul (0.0-0.5); EOSINOPHILS % 5.8 % (0.0-7.0); HEMATOCRIT 29.5 % (37.0-47.0); HEMOGLOBIN 9.8 g/dl (12.0-16.0); LYMPHOCYTES # 0.7 10^3/ul (0.8-2.9); LYMPHOCYTES % 12.2 % (15.0-51.0); MEAN CORPUSCULAR HEMOGLOBIN 32.9 pg (29.0-33.0); MEAN CORPUSCULAR HGB CONC 33.2 g/dl (32.0-37.0); MONOCYTE # 0.7 10^3/ul (0.3-0.9); MONOCYTES % 11.2 % (0.0-11.0); NEUTROPHIL # 4.2 10^3/ul (1.6-7.5); NEUTROPHILS % 69.7 % (39.0-77.0); PLATELET COUNT 214 10^3/UL (140-415); RED BLOOD COUNT 2.98 10^6/ul (4.20-5.40); RED CELL DISTRIBUTION WIDTH 18.1 % (11.5-14.5)
[2018-02-23 05:46] LABS: WHITE BLOOD COUNT 6.1 10^3/ul (4.8-10.8)
[2018-02-23 06:12] LABS: ANION GAP 15 (5-13); BLOOD UREA NITROGEN 42 mg/dl (7-20); CALCIUM 9.1 mg/dl (8.4-10.2); CARBON DIOXIDE 29 mmol/L (21-31); CHLORIDE 96 mmol/L (97-110); CREATININE 2.93 mg/dl (0.44-1.00); Estimated GFR 16 mL/min (>60); GLUCOSE 107 mg/dl (70-220); POTASSIUM 4.7 mmol/L (3.5-5.1); SODIUM 140 mmol/L (135-144)
[2018-02-23 06:28] LABS: ALANINE AMINOTRANSFERASE 37 IU/L (13-69); ALBUMIN 4.1 g/dl (3.3-4.9); ALKALINE PHOSPHATASE 937 IU/L (42-121); ASPARTATE AMINO TRANSFERASE 58 IU/L (15-46); BILIRUBIN,INDIRECT 0.1 mg/dl (0-1.1); BILIRUBIN,TOTAL 0.1 mg/dl (0.2-1.3); TOTAL PROTEIN 7.3 g/dl (6.1-8.1)
[2018-02-23] MEDS: PANTOPRAZOLE 40 MG INJ IV ×2 (06:38→17:27)
[2018-02-23] MEDS: INSULIN ASPART [NOVOLOG] 3 ML PEN SC ×7 (07:47→19:59)
[2018-02-23] MEDS: ONDANSETRON 4 MG INJ IV ×2 (07:56→19:57)
[2018-02-23] MEDS: SEVELAMER CARBONATE 0.8 GM PKT PO ×3 (08:00→17:27)
[2018-02-23] MEDS: MULTIVIT/CA CARB/B CMPLX/FA TAB PO (09:00)
[2018-02-23] MEDS: NEOMYC/POLYMYX/HC 10 ML OTIC SUSP BOTH EARS ×2 (09:00→19:57)
[2018-02-23] MEDS: FOLIC ACID 1 MG TAB PO (09:00)
[2018-02-23] MEDS: AMLODIPINE 2.5 MG TAB PO (10:03)
[2018-02-23] MEDS: ASPIRIN 81 MG TAB PO (10:03)
[2018-02-23] MEDS: CEFEPIME 1GM/50 ML (PMX) 50 ML IVPB (10:05)
[2018-02-23] MEDS: INSULIN GLARGINE [LANTus] (100 UNITS/ML) SYG SC (19:59)
[2018-02-24] MEDS: METOCLOPRAMIDE 10 MG INJ IV ×5 (01:49→23:19)
[2018-02-24] MEDS: ACCU-CHEK XX (02:00)
[2018-02-24] MEDS: HYDROmorphONE 0.5 MG/0.5 ML SYG IV (04:01)
[2018-02-24] MEDS: PANTOPRAZOLE 40 MG INJ IV ×2 (04:01→18:21)
[2018-02-24] MEDS: ONDANSETRON 4 MG INJ IV (04:01)
[2018-02-24 06:14] LABS: VANCOMYCIN,RANDOM 14.4 ug/ml
[2018-02-24 06:16] LABS: ANION GAP 17 (5-13); BLOOD UREA NITROGEN 54 mg/dl (7-20); CALCIUM 8.2 mg/dl (8.4-10.2); CARBON DIOXIDE 25 mmol/L (21-31); CHLORIDE 93 mmol/L (97-110); CREATININE 4.53 mg/dl (0.44-1.00); Estimated GFR 10 mL/min (>60); GLUCOSE 126 mg/dl (70-220); POTASSIUM 5.4 mmol/L (3.5-5.1); SODIUM 135 mmol/L (135-144)
[2018-02-24 06:33] LABS: ALANINE AMINOTRANSFERASE 37 IU/L (13-69); ALBUMIN 4.3 g/dl (3.3-4.9); ALKALINE PHOSPHATASE 868 IU/L (42-121); ASPARTATE AMINO TRANSFERASE 60 IU/L (15-46); BILIRUBIN,INDIRECT 0.1 mg/dl (0-1.1); BILIRUBIN,TOTAL 0.1 mg/dl (0.2-1.3); TOTAL PROTEIN 7.6 g/dl (6.1-8.1)
[2018-02-24] MEDS: INSULIN ASPART [NOVOLOG] 3 ML PEN SC ×5 (07:43→20:01)
[2018-02-24] MEDS: SEVELAMER CARBONATE 0.8 GM PKT PO ×3 (08:00→18:22)
[2018-02-24] MEDS: FOLIC ACID 1 MG TAB PO (09:00)
[2018-02-24] MEDS: MULTIVIT/CA CARB/B CMPLX/FA TAB PO (09:00)
[2018-02-24] MEDS: ASPIRIN 81 MG TAB PO (09:00)
[2018-02-24] MEDS: DEXTROSE 5%-0.45% NACL 1,000 ML IV (09:20)
[2018-02-24] MEDS: NEOMYC/POLYMYX/HC 10 ML OTIC SUSP BOTH EARS ×2 (09:27→20:00)
[2018-02-24] MEDS: AMLODIPINE 2.5 MG TAB PO (09:35)
[2018-02-24] MEDS: CEFEPIME 1GM/50 ML (PMX) 50 ML IVPB (09:37)
[2018-02-24] MEDS: DEXTROSE 50% 50 ML SYRINGE IV ×2 (12:03→15:47)
[2018-02-24] MEDS: hydrALAzine 20 MG INJ IV (15:55)
[2018-02-24] MEDS: EPOETIN 4000 UNITS/1 ML INJ (ESRD) SC (18:30)
[2018-02-24] MEDS: VANCOMYCIN 750 MG in SOD CHLORIDE 0.9% 150 ML IVPB (18:32)
[2018-02-25] MEDS: HYDROmorphONE 0.5 MG/0.5 ML SYG IV ×4 (00:07→18:20)
[2018-02-25] MEDS: hydrALAzine 20 MG INJ IV ×5 (00:08→20:48)
[2018-02-25] MEDS: ACCU-CHEK XX (02:00)
[2018-02-25] MEDS: METOCLOPRAMIDE 10 MG INJ IV (05:13)
[2018-02-25] MEDS: PANTOPRAZOLE 40 MG INJ IV ×2 (05:13→17:20)
[2018-02-25] MEDS: INSULIN ASPART [NOVOLOG] 3 ML PEN SC ×4 (07:36→21:00)
[2018-02-25] MEDS: FOLIC ACID 1 MG TAB PO (09:18)
[2018-02-25] MEDS: LINAGLIPTIN 5 MG TABLET PO (09:19)
[2018-02-25] MEDS: AMLODIPINE 2.5 MG TAB PO (09:19)
[2018-02-25] MEDS: SEVELAMER CARBONATE 0.8 GM PKT PO ×3 (09:19→17:21)
[2018-02-25] MEDS: ASPIRIN 81 MG TAB PO (09:19)
[2018-02-25] MEDS: MULTIVIT/CA CARB/B CMPLX/FA TAB PO (09:19)
[2018-02-25] MEDS: NEOMYC/POLYMYX/HC 10 ML OTIC SUSP BOTH EARS (09:20)
[2018-02-25] MEDS: CEFEPIME 1GM/50 ML (PMX) 50 ML IVPB (09:20)
[2018-02-25 10:35] LABS: ADD MAN DIFF? NO
[2018-02-25 11:01] LABS: ANION GAP 17 (5-13); BLOOD UREA NITROGEN 48 mg/dl (7-20); CALCIUM 8.1 mg/dl (8.4-10.2); CARBON DIOXIDE 24 mmol/L (21-31); CHLORIDE 95 mmol/L (97-110); CREATININE 3.97 mg/dl (0.44-1.00); Estimated GFR 12 mL/min (>60); GLUCOSE 226 mg/dl (70-220); POTASSIUM 5.4 mmol/L (3.5-5.1); SODIUM 136 mmol/L (135-144)
[2018-02-25] MEDS: METOCLOPRAMIDE 5 MG TAB PO (11:30)
[2018-02-25 11:38] LABS: BASOPHIL # 0.1 10^3/ul (0.0-0.1); BASOPHILS % 0.8 % (0.0-2.0); EOSINOPHILS # 0.3 10^3/ul (0.0-0.5); HEMATOCRIT 31.1 % (37.0-47.0); HEMOGLOBIN 10.2 g/dl (12.0-16.0); LYMPHOCYTES # 0.7 10^3/ul (0.8-2.9); LYMPHOCYTES % 10.1 % (15.0-51.0); MEAN CORPUSCULAR HEMOGLOBIN 33.2 pg (29.0-33.0); MEAN CORPUSCULAR HGB CONC 32.8 g/dl (32.0-37.0); MEAN CORPUSCULAR VOLUME 101.3 fl (82.0-101.0); MEAN PLATELET VOLUME 11.9 fl (7.4-10.4); MONOCYTE # 0.9 10^3/ul (0.3-0.9); NEUTROPHIL # 4.7 10^3/ul (1.6-7.5); NEUTROPHILS % 71.3 % (39.0-77.0); PLATELET COUNT 224 10^3/UL (140-415); RED BLOOD COUNT 3.07 10^6/ul (4.20-5.40); RED CELL DISTRIBUTION WIDTH 17.9 % (11.5-14.5)
[2018-02-25 11:38] LABS: WHITE BLOOD COUNT 6.5 10^3/ul (4.8-10.8)
[2018-02-25] MEDS: DULOXETINE 30 MG CAP DR PO (11:52)
[2018-02-25] MEDS ORDERED: NITROGLYCERIN (SL) 0.4 MG TAB SL (13:00)
[2018-02-25 14:54] LABS: CREATINE KINASE 200 IU/L (23-200)
[2018-02-25 15:05] LABS: CK INDEX 3.1; CK-MB 6.28 ng/ml (0.0-2.4); TROPONIN-I < 0.012 ng/ml (0.000-0.120)
[2018-02-25] MEDS: ONDANSETRON 4 MG INJ IV (17:26)
[2018-02-25 18:36] LABS: ALKALINE PHOSPHATASE 918 U/L (33-130); BONE ISOENZYMES 18 % (28-66); INTESTINAL ISOENZYMES 4 % (1-24); LIVER ISOENZYMES 78 % (25-69); PLACENTAL ISOENZYMES 0 % (0)
[2018-02-25 21:09] LABS: CREATINE KINASE 203 IU/L (23-200)
[2018-02-25 21:21] LABS: CK INDEX 3.6; CK-MB 7.25 ng/ml (0.0-2.4); TROPONIN-I < 0.012 ng/ml (0.000-0.120)
[2018-02-26] MEDS: ACCU-CHEK XX (02:00)
[2018-02-26] MEDS: PANTOPRAZOLE 40 MG INJ IV ×2 (06:26→17:59)
[2018-02-26] MEDS: HYDROmorphONE 0.5 MG/0.5 ML SYG IV ×2 (06:34→10:44)
[2018-02-26] MEDS: INSULIN ASPART [NOVOLOG] 3 ML PEN SC ×4 (08:05→21:00)
[2018-02-26 08:25] LABS: ADD MAN DIFF? NO
[2018-02-26 08:32] LABS: WHITE BLOOD COUNT 7.1 10^3/ul (4.8-10.8)
[2018-02-26 08:32] LABS: BASOPHIL # 0.1 10^3/ul (0.0-0.1); EOSINOPHILS # 0.3 10^3/ul (0.0-0.5); EOSINOPHILS % 3.9 % (0.0-7.0); HEMATOCRIT 32.5 % (37.0-47.0); HEMOGLOBIN 10.5 g/dl (12.0-16.0); LYMPHOCYTES # 0.9 10^3/ul (0.8-2.9); LYMPHOCYTES % 12.1 % (15.0-51.0); MEAN CORPUSCULAR HEMOGLOBIN 32.9 pg (29.0-33.0); MEAN CORPUSCULAR HGB CONC 32.3 g/dl (32.0-37.0); MEAN CORPUSCULAR VOLUME 101.9 fl (82.0-101.0); MEAN PLATELET VOLUME 12.7 fl (7.4-10.4); MONOCYTE # 0.9 10^3/ul (0.3-0.9); MONOCYTES % 12.7 % (0.0-11.0); NEUTROPHIL # 4.9 10^3/ul (1.6-7.5); NEUTROPHILS % 69.7 % (39.0-77.0); PLATELET COUNT 181 10^3/UL (140-415); RED BLOOD COUNT 3.19 10^6/ul (4.20-5.40); RED CELL DISTRIBUTION WIDTH 17.5 % (11.5-14.5)
[2018-02-26 08:34] LABS: POSITIVE DIFF @See below
[2018-02-26 08:46] LABS: ANION GAP 18 (5-13); BLOOD UREA NITROGEN 61 mg/dl (7-20); CALCIUM 8.5 mg/dl (8.4-10.2); CARBON DIOXIDE 23 mmol/L (21-31); CHLORIDE 94 mmol/L (97-110); CREATININE 4.97 mg/dl (0.44-1.00); Estimated GFR 9 mL/min (>60); GLUCOSE 143 mg/dl (70-220); SODIUM 135 mmol/L (135-144)
[2018-02-26 08:53] LABS: POTASSIUM 6.6 mmol/L (3.5-5.1)
[2018-02-26] MEDS: FOLIC ACID 1 MG TAB PO (09:00)
[2018-02-26] MEDS ORDERED: AMLODIPINE 2.5 MG TAB PO (09:00)
[2018-02-26 09:43] LABS: CREATINE KINASE 155 IU/L (23-200)
[2018-02-26 09:56] LABS: CK INDEX 4.1; CK-MB 6.28 ng/ml (0.0-2.4); TROPONIN-I < 0.012 ng/ml (0.000-0.120)
[2018-02-26] MEDS: MULTIVIT/CA CARB/B CMPLX/FA TAB PO (10:42)
[2018-02-26] MEDS: BACLOFEN 10 MG TAB PO ×2 (10:42→21:01)
[2018-02-26] MEDS: DOXYCYCLINE 100 MG TAB PO ×2 (10:42→21:00)
[2018-02-26] MEDS: NIFEdipine (XL) 30 MG TAB PO ×2 (10:43→21:00)
[2018-02-26] MEDS: SEVELAMER CARBONATE 0.8 GM PKT PO ×3 (10:43→17:59)
[2018-02-26] MEDS: DULOXETINE 30 MG CAP DR PO (10:43)
[2018-02-26] MEDS: hydrALAzine 20 MG INJ IV (18:36)
[2018-02-27] MEDS: hydrALAzine 20 MG INJ IV ×4 (01:16→22:03)
[2018-02-27] MEDS: ACCU-CHEK XX (02:00)
[2018-02-27 05:44] LABS: ADD MAN DIFF? NO
[2018-02-27 05:46] LABS: WHITE BLOOD COUNT 5.2 10^3/ul (4.8-10.8)
[2018-02-27 05:46] LABS: BASOPHIL # 0.1 10^3/ul (0.0-0.1); BASOPHILS % 1.3 % (0.0-2.0); EOSINOPHILS # 0.2 10^3/ul (0.0-0.5); EOSINOPHILS % 4.4 % (0.0-7.0); HEMATOCRIT 32.1 % (37.0-47.0); HEMOGLOBIN 10.5 g/dl (12.0-16.0); LYMPHOCYTES % 19.5 % (15.0-51.0); MEAN CORPUSCULAR HEMOGLOBIN 32.9 pg (29.0-33.0); MEAN CORPUSCULAR HGB CONC 32.7 g/dl (32.0-37.0); MEAN CORPUSCULAR VOLUME 100.6 fl (82.0-101.0); MEAN PLATELET VOLUME 11.7 fl (7.4-10.4); MONOCYTE # 0.7 10^3/ul (0.3-0.9); MONOCYTES % 13.9 % (0.0-11.0); NEUTROPHIL # 3.2 10^3/ul (1.6-7.5); NEUTROPHILS % 60.5 % (39.0-77.0); PLATELET COUNT 214 10^3/UL (140-415); RED BLOOD COUNT 3.19 10^6/ul (4.20-5.40); RED CELL DISTRIBUTION WIDTH 17.2 % (11.5-14.5)
[2018-02-27] MEDS: PANTOPRAZOLE 40 MG INJ IV ×2 (06:05→17:56)
[2018-02-27] MEDS: HYDROmorphONE 0.5 MG/0.5 ML SYG IV (06:26)
[2018-02-27 06:29] LABS: ANION GAP 18 (5-13); BLOOD UREA NITROGEN 41 mg/dl (7-20); CALCIUM 8.7 mg/dl (8.4-10.2); CARBON DIOXIDE 24 mmol/L (21-31); CHLORIDE 96 mmol/L (97-110); CREATININE 3.93 mg/dl (0.44-1.00); Estimated GFR 12 mL/min (>60); GLUCOSE 160 mg/dl (70-220); POTASSIUM 4.9 mmol/L (3.5-5.1); SODIUM 138 mmol/L (135-144)
[2018-02-27] MEDS: DOXYCYCLINE 100 MG TAB PO ×2 (08:25→20:33)
[2018-02-27] MEDS: NIFEdipine (XL) 30 MG TAB PO ×2 (08:26→20:34)
[2018-02-27] MEDS: FOLIC ACID 1 MG TAB PO (08:26)
[2018-02-27] MEDS: ONDANSETRON 4 MG INJ IV (08:26)
[2018-02-27] MEDS: DULOXETINE 30 MG CAP DR PO (08:26)
[2018-02-27] MEDS: MULTIVIT/CA CARB/B CMPLX/FA TAB PO (08:26)
[2018-02-27] MEDS: BACLOFEN 10 MG TAB PO ×2 (08:27→20:34)
[2018-02-27] MEDS: SEVELAMER CARBONATE 0.8 GM PKT PO ×3 (08:28→17:57)
[2018-02-27] MEDS: INSULIN ASPART [NOVOLOG] 3 ML PEN SC ×4 (08:29→20:34)
[2018-02-27] MEDS: LIDOCAINE 1% (MPF) 5 ML VIAL (11:00)
[2018-02-27 12:24] LABS: FLUID LD 220 U/L; FLUID TOTAL PROTEIN 3.8 g/dl; FLUID TYPE THORACENTESIS FLUID
[2018-02-27 12:25] LABS: FLD MN% 90.6 %; FLD PMN% 9.4 %; FLD RBC 0 /uL; FLD WBC 95 /cmm; FLUID GLUCOSE 171 mg/dl; FLUID TYPE THORACENTESIS FLUID
[2018-02-27 12:30] LABS: FLD CLARITY HAZY; FLD COLOR YELLOW
[2018-02-27 12:30] LABS: FLD TYPE THORACENTHESIS
[2018-02-27] MEDS: LISINOPRIL 10 MG TAB PO (16:46)
[2018-02-27] MEDS: EPOETIN 4000 UNITS/1 ML INJ (ESRD) SC (16:51)
[2018-02-27 23:02] LABS: CANCER ANTIGEN 19-9 29.8 U/ml (0.0-37.0)
[2018-02-28] MEDS: ACCU-CHEK XX (02:00)
[2018-02-28] MEDS: PANTOPRAZOLE 40 MG INJ IV ×2 (05:05→17:54)
[2018-02-28 05:40] LABS: ADD MAN DIFF? NO
[2018-02-28 05:57] LABS: BASOPHIL # 0.1 10^3/ul (0.0-0.1); BASOPHILS % 1.2 % (0.0-2.0); EOSINOPHILS # 0.1 10^3/ul (0.0-0.5); HEMATOCRIT 32.5 % (37.0-47.0); HEMOGLOBIN 10.6 g/dl (12.0-16.0); LYMPHOCYTES % 14.8 % (15.0-51.0); MEAN CORPUSCULAR HGB CONC 32.6 g/dl (32.0-37.0); MEAN CORPUSCULAR VOLUME 101.2 fl (82.0-101.0); MEAN PLATELET VOLUME 11.2 fl (7.4-10.4); MONOCYTE # 0.8 10^3/ul (0.3-0.9); MONOCYTES % 12.3 % (0.0-11.0); NEUTROPHIL # 4.5 10^3/ul (1.6-7.5); NEUTROPHILS % 69.4 % (39.0-77.0); PLATELET COUNT 226 10^3/UL (140-415); RED BLOOD COUNT 3.21 10^6/ul (4.20-5.40); RED CELL DISTRIBUTION WIDTH 16.9 % (11.5-14.5)
[2018-02-28 05:57] LABS: WHITE BLOOD COUNT 6.4 10^3/ul (4.8-10.8)
[2018-02-28 06:45] LABS: ANION GAP 19 (5-13); BLOOD UREA NITROGEN 54 mg/dl (7-20); CALCIUM 8.6 mg/dl (8.4-10.2); CARBON DIOXIDE 23 mmol/L (21-31); CHLORIDE 95 mmol/L (97-110); Estimated GFR 8 mL/min (>60); GLUCOSE 144 mg/dl (70-220); POTASSIUM 5.3 mmol/L (3.5-5.1); SODIUM 137 mmol/L (135-144)
[2018-02-28] MEDS: INSULIN ASPART [NOVOLOG] 3 ML PEN SC ×4 (08:00→21:00)
[2018-02-28] MEDS: MULTIVIT/CA CARB/B CMPLX/FA TAB PO (08:46)
[2018-02-28] MEDS: FOLIC ACID 1 MG TAB PO (08:46)
[2018-02-28] MEDS: DOXYCYCLINE 100 MG TAB PO ×3 (08:46→21:42)
[2018-02-28] MEDS: NIFEdipine (XL) 30 MG TAB PO ×4 (08:46→21:42)
[2018-02-28] MEDS: SEVELAMER CARBONATE 0.8 GM PKT PO ×3 (08:46→17:54)
[2018-02-28] MEDS: BACLOFEN 10 MG TAB PO ×3 (08:47→21:43)
[2018-02-28] MEDS: DULOXETINE 30 MG CAP DR PO (08:47)
[2018-02-28] MEDS: ASPIRIN 81 MG TAB PO (09:00)
[2018-02-28] MEDS: hydrALAzine 20 MG INJ IV ×2 (12:17→20:36)
[2018-02-28] MEDS: HYDROmorphONE 0.5 MG/0.5 ML SYG IV (17:56)
[2018-02-28] MEDS: ONDANSETRON 4 MG INJ IV (20:10)
[2018-02-28] MEDS: LABETALOL HCL 20MG INJ IV ×2 (22:16→22:56)
[2018-03-01] MEDS: ACCU-CHEK XX (02:00)
[2018-03-01] MEDS: PANTOPRAZOLE 40 MG INJ IV ×2 (05:42→18:12)
[2018-03-01 07:19] LABS: ANION GAP 23 (5-13); BLOOD UREA NITROGEN 27 mg/dl (7-20); CARBON DIOXIDE 22 mmol/L (21-31); CHLORIDE 96 mmol/L (97-110); CREATININE 3.47 mg/dl (0.44-1.00); Estimated GFR 13 mL/min (>60); GLUCOSE 110 mg/dl (70-220); POTASSIUM 4.4 mmol/L (3.5-5.1); SODIUM 141 mmol/L (135-144)
[2018-03-01] MEDS: INSULIN ASPART [NOVOLOG] 3 ML PEN SC ×4 (08:00→21:13)
[2018-03-01] MEDS: FOLIC ACID 1 MG TAB PO (09:29)
[2018-03-01] MEDS: SEVELAMER CARBONATE 0.8 GM PKT PO ×3 (09:29→18:13)
[2018-03-01] MEDS: MULTIVIT/CA CARB/B CMPLX/FA TAB PO (09:29)
[2018-03-01] MEDS: ASPIRIN 81 MG TAB PO (09:29)
[2018-03-01] MEDS: DULOXETINE 30 MG CAP DR PO (09:29)
[2018-03-01] MEDS: BACLOFEN 10 MG TAB PO ×2 (09:30→21:07)
[2018-03-01] MEDS: NIFEdipine (XL) 30 MG TAB PO ×2 (09:30→21:08)
[2018-03-01] MEDS: DOXYCYCLINE 100 MG TAB PO ×2 (09:30→21:07)
[2018-03-01] MEDS: EPOETIN 4000 UNITS/1 ML INJ (ESRD) SC (18:13)
[2018-03-02] MEDS: ACCU-CHEK XX (02:00)
[2018-03-02] MEDS: traMADol 50 MG TAB PO ×2 (03:01→18:19)
[2018-03-02] MEDS: PANTOPRAZOLE 40 MG INJ IV (06:08)
[2018-03-02] MEDS: ONDANSETRON 4 MG INJ IV (06:10)
[2018-03-02 06:31] LABS: ANION GAP 19 (5-13); BLOOD UREA NITROGEN 50 mg/dl (7-20); CALCIUM 8.4 mg/dl (8.4-10.2); CARBON DIOXIDE 26 mmol/L (21-31); CHLORIDE 94 mmol/L (97-110); CREATININE 4.92 mg/dl (0.44-1.00); Estimated GFR 9 mL/min (>60); GLUCOSE 206 mg/dl (70-220); POTASSIUM 4.8 mmol/L (3.5-5.1); SODIUM 139 mmol/L (135-144)
[2018-03-02] MEDS: NIFEdipine (XL) 30 MG TAB PO ×2 (07:55→21:25)
[2018-03-02] MEDS: SEVELAMER CARBONATE 0.8 GM PKT PO ×3 (09:28→13:08)
[2018-03-02] MEDS: DULOXETINE 30 MG CAP DR PO (09:28)
[2018-03-02] MEDS: BACLOFEN 10 MG TAB PO ×2 (09:28→21:24)
[2018-03-02] MEDS: FOLIC ACID 1 MG TAB PO (09:28)
[2018-03-02] MEDS: ASPIRIN 81 MG TAB PO (09:28)
[2018-03-02] MEDS: DOXYCYCLINE 100 MG TAB PO ×2 (09:28→21:24)
[2018-03-02] MEDS: MULTIVIT/CA CARB/B CMPLX/FA TAB PO (09:28)
[2018-03-02] MEDS: INSULIN ASPART [NOVOLOG] 3 ML PEN SC ×4 (09:40→21:00)
[2018-03-02] MEDS: LINAGLIPTIN 5 MG TABLET PO (13:08)
[2018-03-02] MEDS: hydrALAzine 20 MG INJ IV (19:24)
[2018-03-03] MEDS: ONDANSETRON 4 MG INJ IV ×2 (01:00→18:21)
[2018-03-03] MEDS: ACCU-CHEK XX (02:00)
[2018-03-03] MEDS: METOCLOPRAMIDE 10 MG INJ IV (05:10)
[2018-03-03] MEDS: morphine 4 MG/ML VIAL IV (05:11)
[2018-03-03] MEDS: hydrALAzine 20 MG INJ IV (05:27)
[2018-03-03 05:30] LABS: ADD MAN DIFF? NO
[2018-03-03 05:37] LABS: WHITE BLOOD COUNT 6.3 10^3/ul (4.8-10.8)
[2018-03-03 05:37] LABS: BASOPHIL # 0.1 10^3/ul (0.0-0.1); EOSINOPHILS # 0.3 10^3/ul (0.0-0.5); EOSINOPHILS % 4.2 % (0.0-7.0); HEMATOCRIT 41.2 % (37.0-47.0); HEMOGLOBIN 13.3 g/dl (12.0-16.0); MEAN CORPUSCULAR HEMOGLOBIN 32.7 pg (29.0-33.0); MEAN CORPUSCULAR HGB CONC 32.3 g/dl (32.0-37.0); MEAN CORPUSCULAR VOLUME 101.2 fl (82.0-101.0); MEAN PLATELET VOLUME 11.6 fl (7.4-10.4); MONOCYTE # 0.6 10^3/ul (0.3-0.9); MONOCYTES % 9.8 % (0.0-11.0); NEUTROPHIL # 4.3 10^3/ul (1.6-7.5); NEUTROPHILS % 68.7 % (39.0-77.0); PLATELET COUNT 218 10^3/UL (140-415); RED BLOOD COUNT 4.07 10^6/ul (4.20-5.40); RED CELL DISTRIBUTION WIDTH 15.7 % (11.5-14.5)
[2018-03-03 05:59] LABS: ANION GAP 15 (5-13); BLOOD UREA NITROGEN 24 mg/dl (7-20); CARBON DIOXIDE 28 mmol/L (21-31); CHLORIDE 97 mmol/L (97-110); CREATININE 3.11 mg/dl (0.44-1.00); Estimated GFR 15 mL/min (>60); GLUCOSE 160 mg/dl (70-220); POTASSIUM 4.5 mmol/L (3.5-5.1); SODIUM 140 mmol/L (135-144)
[2018-03-03] MEDS: PANTOPRAZOLE (EC) 40 MG TAB PO (06:00)
[2018-03-03] MEDS: INSULIN ASPART [NOVOLOG] 3 ML PEN SC ×4 (08:00→21:48)
[2018-03-03] MEDS: SEVELAMER CARBONATE 0.8 GM PKT PO ×3 (08:05→17:03)
[2018-03-03] MEDS: DULOXETINE 30 MG CAP DR PO (08:05)
[2018-03-03] MEDS: DOXYCYCLINE 100 MG TAB PO ×2 (08:06→21:31)
[2018-03-03] MEDS: BACLOFEN 10 MG TAB PO ×2 (08:06→21:32)
[2018-03-03] MEDS: FOLIC ACID 1 MG TAB PO (08:06)
[2018-03-03] MEDS: MULTIVIT/CA CARB/B CMPLX/FA TAB PO (08:06)
[2018-03-03] MEDS: ASPIRIN 81 MG TAB PO (08:07)
[2018-03-03] MEDS: LINAGLIPTIN 5 MG TABLET PO (08:07)
[2018-03-03] MEDS: NIFEdipine (XL) 30 MG TAB PO ×2 (08:07→21:32)
[2018-03-03] MEDS: EPOETIN 2000 UNITS/1 ML INJ (ESRD) SC (17:00)
[2018-03-04] MEDS: ACCU-CHEK XX (02:00)
[2018-03-04] MEDS: ONDANSETRON 4 MG INJ IV ×2 (05:50→14:40)
[2018-03-04] MEDS: PANTOPRAZOLE (EC) 40 MG TAB PO (05:50)
[2018-03-04 06:13] LABS: ADD MAN DIFF? NO
[2018-03-04 06:22] LABS: WHITE BLOOD COUNT 6.1 10^3/ul (4.8-10.8)
[2018-03-04 06:22] LABS: BASOPHIL # 0.1 10^3/ul (0.0-0.1); BASOPHILS % 1.2 % (0.0-2.0); EOSINOPHILS # 0.4 10^3/ul (0.0-0.5); EOSINOPHILS % 6.3 % (0.0-7.0); HEMATOCRIT 39.2 % (37.0-47.0); HEMOGLOBIN 12.9 g/dl (12.0-16.0); LYMPHOCYTES # 1.1 10^3/ul (0.8-2.9); LYMPHOCYTES % 17.6 % (15.0-51.0); MEAN CORPUSCULAR HEMOGLOBIN 33.4 pg (29.0-33.0); MEAN CORPUSCULAR HGB CONC 32.9 g/dl (32.0-37.0); MEAN CORPUSCULAR VOLUME 101.6 fl (82.0-101.0); MEAN PLATELET VOLUME 11.8 fl (7.4-10.4); MONOCYTE # 0.9 10^3/ul (0.3-0.9); NEUTROPHIL # 3.7 10^3/ul (1.6-7.5); NEUTROPHILS % 60.7 % (39.0-77.0); PLATELET COUNT 201 10^3/UL (140-415); RED BLOOD COUNT 3.86 10^6/ul (4.20-5.40); RED CELL DISTRIBUTION WIDTH 15.2 % (11.5-14.5)
[2018-03-04 07:03] LABS: ANION GAP 17 (5-13); BLOOD UREA NITROGEN 38 mg/dl (7-20); CALCIUM 8.9 mg/dl (8.4-10.2); CARBON DIOXIDE 27 mmol/L (21-31); CHLORIDE 95 mmol/L (97-110); CREATININE 4.78 mg/dl (0.44-1.00); Estimated GFR 9 mL/min (>60); GLUCOSE 139 mg/dl (70-220); POTASSIUM 4.6 mmol/L (3.5-5.1); SODIUM 139 mmol/L (135-144)
[2018-03-04] MEDS: INSULIN ASPART [NOVOLOG] 3 ML PEN SC ×4 (08:07→21:00)
[2018-03-04] MEDS: SEVELAMER CARBONATE 0.8 GM PKT PO ×3 (08:43→17:26)
[2018-03-04] MEDS: DULOXETINE 30 MG CAP DR PO ×3 (08:44→20:43)
[2018-03-04] MEDS: BACLOFEN 10 MG TAB PO ×2 (08:44→20:24)
[2018-03-04] MEDS: FOLIC ACID 1 MG TAB PO (08:44)
[2018-03-04] MEDS: ASPIRIN 81 MG TAB PO (08:44)
[2018-03-04] MEDS: LINAGLIPTIN 5 MG TABLET PO (08:44)
[2018-03-04] MEDS: DOXYCYCLINE 100 MG TAB PO ×2 (08:44→20:25)
[2018-03-04] MEDS: NIFEdipine (XL) 30 MG TAB PO ×3 (08:45→20:35)
[2018-03-04] MEDS: MULTIVIT/CA CARB/B CMPLX/FA TAB PO (12:51)
[2018-03-04] MEDS: LOSARTAN 25 MG TAB PO (12:54)
[2018-03-04] MEDS: traMADol 50 MG TAB PO (14:39)
[2018-03-04] MEDS: METOCLOPRAMIDE 10 MG INJ IV (20:50)
[2018-03-05] MEDS: ACCU-CHEK XX (02:00)
[2018-03-05] MEDS: PANTOPRAZOLE (EC) 40 MG TAB PO (05:22)
[2018-03-05] MEDS: ONDANSETRON 4 MG INJ IV (08:15)
[2018-03-05] MEDS: ASPIRIN 81 MG TAB PO (08:16)
[2018-03-05] MEDS: BACLOFEN 10 MG TAB PO (08:16)
[2018-03-05] MEDS: LOSARTAN 25 MG TAB PO (08:16)
[2018-03-05] MEDS: SEVELAMER CARBONATE 0.8 GM PKT PO ×2 (08:16→12:11)
[2018-03-05] MEDS: FOLIC ACID 1 MG TAB PO (08:16)
[2018-03-05] MEDS: LINAGLIPTIN 5 MG TABLET PO (08:16)
[2018-03-05] MEDS: DOXYCYCLINE 100 MG TAB PO (08:16)
[2018-03-05] MEDS: NIFEdipine (XL) 30 MG TAB PO (08:17)
[2018-03-05] MEDS: MULTIVIT/CA CARB/B CMPLX/FA TAB PO (08:17)
[2018-03-05] MEDS: DULOXETINE 30 MG CAP DR PO (08:18)
[2018-03-05] MEDS: INSULIN ASPART [NOVOLOG] 3 ML PEN SC ×2 (08:26→12:00)
== END 2018-03-05 12:23 | disposition home or self-care (01) | DRG 291 ==
LOC: 6WM 03-04 20:46 → E/R 10:48 → 6WM 13:38
PROVIDERS: Family Medicine
PROC: 0W993ZX Drainage of Right Pleural Cavity, Percutaneous Approach, Diagnostic (ICD-10-PCS; principal; 2018-02-26)
DX: I13.2 Hypertensive heart and chronic kidney disease with heart failure and with stage 5 chronic kidney disease, or end stage renal disease (principal); N18.6 End stage renal disease; G92 Toxic encephalopathy; J18.9 Pneumonia, unspecified organism; J90 Pleural effusion, not elsewhere classified; T82.590A Other mechanical complication of surgically created arteriovenous fistula, initial encounter; T82.868A Thrombosis due to vascular prosthetic devices, implants and grafts, initial encounter; I16.1 Hypertensive emergency; M84.454A Pathological fracture, pelvis, initial encounter for fracture; I50.32 Chronic diastolic (congestive) heart failure; E11.22 Type 2 diabetes mellitus with diabetic chronic kidney disease; Z99.2 Dependence on renal dialysis; E87.5 Hyperkalemia; I27.20 Pulmonary hypertension, unspecified; I34.0 Nonrheumatic mitral (valve) insufficiency; Z79.4 Long term (current) use of insulin; D63.1 Anemia in chronic kidney disease; G72.9 Myopathy, unspecified; F32.9 Major depressive disorder, single episode, unspecified; R07.89 Other chest pain; Y95 Nosocomial condition; H60.93 Unspecified otitis externa, bilateral; Z53.29 Procedure and treatment not carried out because of patient's decision for other reasons; Y84.1 Kidney dialysis as the cause of abnormal reaction of the patient, or of later complication, without mention of misadventure at the time of the procedure; Y92.9 Unspecified place or not applicable; E11.649 Type 2 diabetes mellitus with hypoglycemia without coma; M70.61 Trochanteric bursitis, right hip; N63.10 Unspecified lump in the right breast, unspecified quadrant; R53.81 Other malaise; R59.0 Localized enlarged lymph nodes
CPT/HCPCS: 32555; 36415; 70450; 71045; 71250; 74176; 76642; 76882-RT; 76942; 80048; 80053; 80061; 80076; 80202; 82140; 82378; 82550; 82553; 82945; 82962; 83036; 83605; 83615; 83735; 83880; 84080; 84100; 84157; 84443; 84484; 85025; 85610; 85730; 86301; 87040; 87070; 87081; 87340; 88104; 88305; 89051; 90686; 90935; 93005; 93306; 93971; 94664; 96374; 97110; 97162; 97530; 97542; 99285-25

== ENCOUNTER 2018-11-18 21:12 | Inpatient (IN) | payer MEDICARE, OTHER ==
[2018-11-18] MEDS ORDERED: morphine 4 MG/ML VIAL IV (21:27)
[2018-11-18 22:15] LABS: ADD MAN DIFF? NO
[2018-11-18] MEDS: ONDANSETRON 4 MG INJ IV (22:15)
[2018-11-18 22:24] LABS: WHITE BLOOD COUNT 6.6 10^3/ul (4.8-10.8)
[2018-11-18 22:24] LABS: BASOPHILS % 0.6 % (0.0-2.0); EOSINOPHILS # 0.2 10^3/ul (0.0-0.5); EOSINOPHILS % 3.2 % (0.0-7.0); HEMATOCRIT 39.6 % (37.0-47.0); HEMOGLOBIN 12.4 g/dl (12.0-16.0); LYMPHOCYTES # 1.2 10^3/ul (0.8-2.9); LYMPHOCYTES % 18.4 % (15.0-51.0); MEAN CORPUSCULAR HGB CONC 31.3 g/dl (32.0-37.0); MEAN CORPUSCULAR VOLUME 102.3 fl (82.0-101.0); MEAN PLATELET VOLUME 11.3 fl (7.4-10.4); MONOCYTE # 0.4 10^3/ul (0.3-0.9); NEUTROPHIL # 4.7 10^3/ul (1.6-7.5); NEUTROPHILS % 71.3 % (39.0-77.0); PLATELET COUNT 236 10^3/UL (140-415); RED BLOOD COUNT 3.87 10^6/ul (4.20-5.40); RED CELL DISTRIBUTION WIDTH 15.6 % (11.5-14.5)
[2018-11-18] MEDS: morphine 4 MG/ML VIAL IV (22:29)
[2018-11-18 22:43] LABS: ALBUMIN 4.1 g/dl (3.3-4.9); ALKALINE PHOSPHATASE 862 IU/L (42-121); ANION GAP 13 (5-13); ASPARTATE AMINO TRANSFERASE 40 IU/L (15-46); BLOOD UREA NITROGEN 24 mg/dl (7-20); CARBON DIOXIDE 31 mmol/L (21-31); CHLORIDE 90 mmol/L (97-110); CREATININE 3.79 mg/dl (0.44-1.00); Estimated GFR 12 mL/min (>60); GLUCOSE 369 mg/dl (70-220); LIPASE 55 U/L (23-300); POTASSIUM 3.9 mmol/L (3.5-5.1); SODIUM 134 mmol/L (135-144); TOTAL PROTEIN 7.5 g/dl (6.1-8.1)
[2018-11-18 22:44] LABS: INR 0.95; PROTIME 12.8 Sec (11.9-14.9)
[2018-11-18 22:45] LABS: PARTIAL THROMBOPLASTIN TIME 61.1 Sec (23.0-35.0)
[2018-11-18 22:46] LABS: ALANINE AMINOTRANSFERASE < 6 IU/L (13-69)
[2018-11-18 22:54] LABS: TROPONIN-I < 0.012 ng/ml (0.000-0.120)
[2018-11-18] MEDS: SOD CHLORIDE 0.9% 500 ML IV (23:19)
[2018-11-18] MEDS ORDERED: DEXTROSE 50% 50 ML SYRINGE IV (23:45)
[2018-11-18] MEDS ORDERED: GLUCAGON 1 MG INJ IM (23:45)
[2018-11-18] MEDS ORDERED: GLUCOSE GEL 15 GRAM TUBE BUCCAL (23:45)
[2018-11-18] MEDS ORDERED: GLUCOSE GEL 15 GRAM TUBE PO ×2 (23:45)
[2018-11-19] MEDS ORDERED: ACETAMINOPHEN 325 MG TAB PO
[2018-11-19] MEDS ORDERED: BISACODYL (EC) 5 MG TAB PO
[2018-11-19] MEDS ORDERED: DOCUSATE SODIUM 100 MG CAP PO
[2018-11-19] MEDS: MIDODRINE 5 MG TAB PO
[2018-11-19] MEDS ORDERED: NACL 0.9% 3 ML SYG IV
[2018-11-19] MEDS: ACCU-CHEK XX (02:00)
[2018-11-19] MEDS: SOD CHLORIDE 0.9% 1,000 ML IV (02:03)
[2018-11-19] MEDS: CLONIDINE 0.3 MG/24 HR PATCH TRANSDERM (02:25)
[2018-11-19] MEDS: INSULIN ASPART [NOVOLOG] 3 ML PEN SC ×6 (02:43→21:00)
[2018-11-19] MEDS: INSULIN GLARGINE [LANTus] (100 UNITS/ML) SYG SC ×2 (02:44→21:00)
[2018-11-19 06:20] LABS: ABNORMAL IP MESSAGE 1; HEMATOCRIT 21.4 % (37.0-47.0); MEAN CORPUSCULAR HEMOGLOBIN 32.4 pg (29.0-33.0); MEAN CORPUSCULAR HGB CONC 31.3 g/dl (32.0-37.0); MEAN CORPUSCULAR VOLUME 103.4 fl (82.0-101.0); MEAN PLATELET VOLUME 11.1 fl (7.4-10.4); PLATELET COUNT 207 10^3/UL (140-415); RED BLOOD COUNT 2.07 10^6/ul (4.20-5.40); RED CELL DISTRIBUTION WIDTH 15.5 % (11.5-14.5)
[2018-11-19 06:20] LABS: WHITE BLOOD COUNT 7.5 10^3/ul (4.8-10.8)
[2018-11-19 06:56] LABS: ALANINE AMINOTRANSFERASE 13 IU/L (13-69); ALBUMIN 2.9 g/dl (3.3-4.9); ALBUMIN/GLOBULIN RATIO 0.96; ALKALINE PHOSPHATASE 548 IU/L (42-121); ANION GAP 10 (5-13); ASPARTATE AMINO TRANSFERASE 30 IU/L (15-46); BILIRUBIN,INDIRECT 0.1 mg/dl (0-1.1); BILIRUBIN,TOTAL 0.1 mg/dl (0.2-1.3); BLOOD UREA NITROGEN 31 mg/dl (7-20); CALCIUM 8.3 mg/dl (8.4-10.2); CARBON DIOXIDE 30 mmol/L (21-31); CHLORIDE 95 mmol/L (97-110); CREATININE 4.06 mg/dl (0.44-1.00); Estimated GFR 11 mL/min (>60); GLUCOSE 254 mg/dl (70-220); MAGNESIUM 2.3 mg/dl (1.7-2.5); SODIUM 135 mmol/L (135-144); TOTAL PROTEIN 5.9 g/dl (6.1-8.1)
[2018-11-19 07:04] LABS: POSITIVE DIFF @See below
[2018-11-19 07:06] LABS: HEMOGLOBIN 6.7 g/dl (12.0-16.0)
[2018-11-19 07:07] LABS: ADD MAN DIFF? YES; PATH REVIEW? YES
[2018-11-19] MEDS: SEVELAMER CARBONATE 0.8 GM PKT PO ×3 (08:00→18:00)
[2018-11-19 08:03] LABS: HEMOGLOBIN A1C 8.1 % (0-5.9)
[2018-11-19 08:13] LABS: ADD MAN DIFF? NO
[2018-11-19 08:17] LABS: ABNORMAL IP MESSAGE 1; BASOPHILS % 0.4 % (0.0-2.0); EOSINOPHILS # 0.3 10^3/ul (0.0-0.5); EOSINOPHILS % 3.8 % (0.0-7.0); HEMATOCRIT 21.2 % (37.0-47.0); LYMPHOCYTES # 1.4 10^3/ul (0.8-2.9); LYMPHOCYTES % 18.4 % (15.0-51.0); MEAN CORPUSCULAR HGB CONC 31.1 g/dl (32.0-37.0); MEAN CORPUSCULAR VOLUME 102.9 fl (82.0-101.0); MEAN PLATELET VOLUME 10.9 fl (7.4-10.4); MONOCYTE # 0.7 10^3/ul (0.3-0.9); MONOCYTES % 8.9 % (0.0-11.0); NEUTROPHIL # 5.3 10^3/ul (1.6-7.5); PLATELET COUNT 196 10^3/UL (140-415); RED BLOOD COUNT 2.06 10^6/ul (4.20-5.40); RED CELL DISTRIBUTION WIDTH 15.6 % (11.5-14.5)
[2018-11-19 08:17] LABS: WHITE BLOOD COUNT 7.7 10^3/ul (4.8-10.8)
[2018-11-19 08:36] LABS: POSITIVE DIFF @See below
[2018-11-19 08:43] LABS: HEMOGLOBIN 6.6 g/dl (12.0-16.0)
[2018-11-19] MEDS: LISINOPRIL 20 MG TAB PO (09:00)
[2018-11-19] MEDS: DULOXETINE 30 MG CAP DR PO (09:00)
[2018-11-19] MEDS: DOXYCYCLINE 100 MG TAB PO ×2 (09:00→21:00)
[2018-11-19 10:00] LABS: IMMEDIATE SPIN CROSSMATCH 1 2
[2018-11-19] MEDS: DEXTROSE 50% 50 ML SYRINGE IV (10:15)
[2018-11-19] MEDS: hydrALAzine 20 MG INJ IV (10:27)
[2018-11-19 10:55] LABS: ANISOCYTOSIS 2+ (0-0); BAND NEUTROPHILS #M 0.9 10^3/ul (0.0-0.6); BAND NEUTROPHILS % (M) 12 % (0-4); EOSINOPHILS % (M) 5 % (0-7); GIANT THROMBO% (M) 1 % (0-0); HYPOCHROMASIA 1+ (0-0); LYMPHOCYTES #M 1.3 10^3/ul (0.8-2.9); LYMPHOCYTES % (M) 18 % (15-51); MONOCYTE #M 0.4 10^3/ul (0.3-0.9); MONOCYTES % (M) 6 % (0-11); PLATELET ESTIMATE NORMAL; POLYCHROMASIA 1+ (0-0); SEG NEUT #M 4.5 10^3/ul (1.6-7.5); SEGMENTED NEUTROPHILS (M) % 59 % (39-77)
[2018-11-19] MEDS: PANTOPRAZOLE (EC) 40 MG TAB PO (15:34)
[2018-11-19] MEDS: FOLIC ACID 1 MG TAB PO (15:41)
[2018-11-19 17:58] LABS: HEPATITIS B SURFACE ANTIGEN NEGATIVE (NEGATIVE)
[2018-11-19 18:22] LABS: HEPATITIS B SURFACE ANTIBODY POSITIVE (NEGATIVE)
[2018-11-19] MEDS: traMADol 50 MG TAB PO (18:32)
[2018-11-19] MEDS: HYDROmorphONE 0.5 MG/0.5 ML SYG IV (20:20)
[2018-11-19] MEDS: ONDANSETRON 4 MG INJ IV (20:52)
[2018-11-20] MEDS: INSULIN ASPART [NOVOLOG] 3 ML PEN SC ×6 (01:00→20:42)
[2018-11-20] MEDS: ACCU-CHEK XX (02:00)
[2018-11-20] MEDS: ONDANSETRON 4 MG INJ IV ×2 (04:50→20:25)
[2018-11-20] MEDS: hydrALAzine 20 MG INJ IV ×2 (04:51→10:19)
[2018-11-20] MEDS: SEVELAMER CARBONATE 0.8 GM PKT PO ×3 (08:00→17:08)
[2018-11-20 09:06] LABS: ADD MAN DIFF? NO
[2018-11-20 09:09] LABS: WHITE BLOOD COUNT 8.2 10^3/ul (4.8-10.8)
[2018-11-20 09:09] LABS: BASOPHIL # 0.1 10^3/ul (0.0-0.1); BASOPHILS % 0.6 % (0.0-2.0); EOSINOPHILS # 0.3 10^3/ul (0.0-0.5); EOSINOPHILS % 3.3 % (0.0-7.0); HEMATOCRIT 32.2 % (37.0-47.0); HEMOGLOBIN 10.3 g/dl (12.0-16.0); LYMPHOCYTES % 11.6 % (15.0-51.0); MEAN CORPUSCULAR HEMOGLOBIN 30.9 pg (29.0-33.0); MEAN CORPUSCULAR VOLUME 96.7 fl (82.0-101.0); MEAN PLATELET VOLUME 10.7 fl (7.4-10.4); MONOCYTE # 0.6 10^3/ul (0.3-0.9); MONOCYTES % 7.7 % (0.0-11.0); NEUTROPHIL # 6.3 10^3/ul (1.6-7.5); NEUTROPHILS % 76.1 % (39.0-77.0); NUCLEATED RED BLOOD CELLS% 0.4 /100WBC (0.0-0.0); PLATELET COUNT 199 10^3/UL (140-415); RED BLOOD COUNT 3.33 10^6/ul (4.20-5.40); RED CELL DISTRIBUTION WIDTH 18.6 % (11.5-14.5)
[2018-11-20 09:27] LABS: MAGNESIUM 2.2 mg/dl (1.7-2.5)
[2018-11-20 09:27] LABS: PHOSPHORUS 3.7 mg/dl (2.5-4.9)
[2018-11-20 09:30] LABS: ALANINE AMINOTRANSFERASE 10 IU/L (13-69); ALBUMIN 3.3 g/dl (3.3-4.9); ALBUMIN/GLOBULIN RATIO 1.03; ALKALINE PHOSPHATASE 618 IU/L (42-121); ANION GAP 7 (5-13); ASPARTATE AMINO TRANSFERASE 43 IU/L (15-46); BILIRUBIN,INDIRECT 0.1 mg/dl (0-1.1); BILIRUBIN,TOTAL 0.1 mg/dl (0.2-1.3); BLOOD UREA NITROGEN 16 mg/dl (7-20); CALCIUM 8.9 mg/dl (8.4-10.2); CARBON DIOXIDE 31 mmol/L (21-31); CHLORIDE 96 mmol/L (97-110); Estimated GFR 17 mL/min (>60); GLUCOSE 292 mg/dl (70-220); POTASSIUM 4.3 mmol/L (3.5-5.1); SODIUM 134 mmol/L (135-144); TOTAL PROTEIN 6.5 g/dl (6.1-8.1)
[2018-11-20] MEDS ORDERED: GELATIN SIZE 100 SPONGE (12:52)
[2018-11-20] MEDS ORDERED: THROMBIN 5000 UNIT (RECOTHROM) VIAL (12:53)
[2018-11-20] MEDS ORDERED: BUPIVACAINE 0.25% (MPF) 30 ML INJ (12:53)
[2018-11-20] MEDS ORDERED: POLYMYXIN/BACITRACIN 1L IRRIG (12:54)
[2018-11-20] MEDS ORDERED: LIDOCAINE 1% (MPF) 30 ML INJ (12:55)
[2018-11-20] MEDS ORDERED: FENTAnyl 50 MCG/ML VIAL ×2 (13:38→15:12)
[2018-11-20] MEDS ORDERED: MIDAZOLAM 1 MG/ML 2 ML INJ (13:38)
[2018-11-20] MEDS ORDERED: ROPIVACAINE 0.5 % 30 ML VIAL (13:39)
[2018-11-20] MEDS: HEPARIN 1000 UNITS/ML 10 ML INJ (14:19)
[2018-11-20] MEDS ORDERED: ONDANSETRON 4 MG INJ (14:44)
[2018-11-20] MEDS ORDERED: LIDOCAINE 2% (SDV) 5 ML INJ (14:44)
[2018-11-20] MEDS ORDERED: CEFAZOLIN 1 GM INJ (14:44)
[2018-11-20] MEDS ORDERED: ETOMIDATE 20 MG INJ (14:44)
[2018-11-20] MEDS ORDERED: DIPHENHYDRAMINE 50 MG INJ IV (15:00)
[2018-11-20] MEDS ORDERED: ONDANSETRON 4 MG INJ IV (15:00)
[2018-11-20] MEDS ORDERED: hydrALAzine 20 MG INJ IV (15:00)
[2018-11-20] MEDS: FENTAnyl 50 MCG/ML VIAL IV (15:21)
[2018-11-20] MEDS: DULOXETINE 30 MG CAP DR PO (16:43)
[2018-11-20] MEDS: PANTOPRAZOLE (EC) 40 MG TAB PO (16:44)
[2018-11-20] MEDS: FOLIC ACID 1 MG TAB PO (16:44)
[2018-11-20] MEDS: LISINOPRIL 20 MG TAB PO (16:45)
[2018-11-20] MEDS: DOXYCYCLINE 100 MG TAB PO ×2 (16:46→20:17)
[2018-11-20] MEDS: traMADol 50 MG TAB PO ×2 (20:18→23:28)
[2018-11-20] MEDS: INSULIN GLARGINE [LANTus] (100 UNITS/ML) SYG SC (20:42)
[2018-11-20] MEDS: morphine 4 MG/ML VIAL IV (21:07)
[2018-11-20] MEDS: METOCLOPRAMIDE 10 MG INJ IV (22:42)
[2018-11-21] MEDS: INSULIN ASPART [NOVOLOG] 3 ML PEN SC ×5 (01:00→16:52)
[2018-11-21 06:06] LABS: ADD MAN DIFF? NO
[2018-11-21 06:10] LABS: WHITE BLOOD COUNT 8.5 10^3/ul (4.8-10.8)
[2018-11-21 06:10] LABS: BASOPHIL # 0.1 10^3/ul (0.0-0.1); BASOPHILS % 0.6 % (0.0-2.0); EOSINOPHILS # 0.2 10^3/ul (0.0-0.5); EOSINOPHILS % 2.8 % (0.0-7.0); HEMOGLOBIN 9.4 g/dl (12.0-16.0); LYMPHOCYTES # 1.1 10^3/ul (0.8-2.9); LYMPHOCYTES % 13.3 % (15.0-51.0); MEAN CORPUSCULAR HEMOGLOBIN 31.2 pg (29.0-33.0); MEAN CORPUSCULAR HGB CONC 31.3 g/dl (32.0-37.0); MEAN CORPUSCULAR VOLUME 99.7 fl (82.0-101.0); MONOCYTE # 0.5 10^3/ul (0.3-0.9); MONOCYTES % 6.4 % (0.0-11.0); NEUTROPHIL # 6.5 10^3/ul (1.6-7.5); NEUTROPHILS % 76.2 % (39.0-77.0); NUCLEATED RED BLOOD CELLS% 0.2 /100WBC (0.0-0.0); PLATELET COUNT 189 10^3/UL (140-415); RED BLOOD COUNT 3.01 10^6/ul (4.20-5.40); RED CELL DISTRIBUTION WIDTH 18.1 % (11.5-14.5)
[2018-11-21 06:38] LABS: ANION GAP 9 (5-13); BLOOD UREA NITROGEN 26 mg/dl (7-20); CALCIUM 8.2 mg/dl (8.4-10.2); CARBON DIOXIDE 29 mmol/L (21-31); CHLORIDE 95 mmol/L (97-110); CREATININE 3.83 mg/dl (0.44-1.00); Estimated GFR 12 mL/min (>60); GLUCOSE 173 mg/dl (70-220); POTASSIUM 4.7 mmol/L (3.5-5.1); SODIUM 133 mmol/L (135-144)
[2018-11-21] MEDS: SEVELAMER CARBONATE 0.8 GM PKT PO ×3 (07:54→17:45)
[2018-11-21] MEDS: METOCLOPRAMIDE 10 MG INJ IV (08:22)
[2018-11-21] MEDS: DOXYCYCLINE 100 MG TAB PO ×2 (08:24→21:42)
[2018-11-21] MEDS: FOLIC ACID 1 MG TAB PO (08:24)
[2018-11-21] MEDS: PANTOPRAZOLE (EC) 40 MG TAB PO (08:24)
[2018-11-21] MEDS: DULOXETINE 30 MG CAP DR PO (08:24)
[2018-11-21] MEDS: LISINOPRIL 20 MG TAB PO (08:25)
[2018-11-21] MEDS ORDERED: SODIUM CHLORIDE 0.9% 1L BAG IV (13:30)
[2018-11-21] MEDS ORDERED: ALBUMIN HUMAN 25% 100 ML IV (13:30)
[2018-11-21] MEDS: HEPARIN 1000 UNITS/ML 10 ML INJ CATHETER (21:41)
[2018-11-21] MEDS: INSULIN GLARGINE [LANTus] (100 UNITS/ML) SYG SC (21:49)
[2018-11-22] MEDS ORDERED: INSULIN ASPART [NOVOLOG] 3 ML PEN SC (08:00)
== END 2018-11-22 01:07 | disposition home or self-care (01) | DRG 252 ==
LOC: 6WM 22:32 → E/R 21:12
PROC: 05WY07Z Revision of Autologous Tissue Substitute in Upper Vein, Open Approach (ICD-10-PCS; principal; 2018-11-20 11:30)
PROC: 30233N1 Transfusion of Nonautologous Red Blood Cells into Peripheral Vein, Percutaneous Approach (ICD-10-PCS; 2018-11-20 13:42)
DX: T82.838A Hemorrhage due to vascular prosthetic devices, implants and grafts, initial encounter (principal); N18.6 End stage renal disease; I12.0 Hypertensive chronic kidney disease with stage 5 chronic kidney disease or end stage renal disease; D62 Acute posthemorrhagic anemia; E11.22 Type 2 diabetes mellitus with diabetic chronic kidney disease; Z99.2 Dependence on renal dialysis; T82.7XXA Infection and inflammatory reaction due to other cardiac and vascular devices, implants and grafts, initial encounter
CPT/HCPCS: 36430; 71045; 80048; 80053; 82962; 83036; 83690; 83735; 84100; 84443; 84484; 85025; 85610; 85730; 86706; 86850; 86900; 86901; 86920; 87340; 90935; 93005; 96374; 96375; 99285-25; G0378